=== PATIENT | female | born 1965 | race African-American/Black ===

== ENCOUNTER 2017-07-26 08:39 | Inpatient (IN) | payer OTHER ==
[2017-07-26] MEDS ORDERED: Nitroglycerin 2% Ointment 1 INCH/1 GM Packet ONE (09:05)
[2017-07-26] MEDS ORDERED: Acetaminophen 500 MG TAB ONE (09:05)
[2017-07-26] MEDS ORDERED: Acetaminophen 325 MG TAB ONE (09:15)
[2017-07-26 09:22] LABS: Hematocrit 49.6 % (36.0-47.0); Mean Platelet Volume 7.6 fL (7.4-10.4); Red Blood Cell (RBC) Count 5.65 mill/uL (4.20-5.40); White Blood Cell (WBC) Count 4.1 thou/uL (4.8-10.8)
--- NOTE | 2017-07-26 09:23 | RAD ---
CHEST ONE VIEW HISTORY: Chest pain. COMPARISON: 09/09/2014 FINDINGS: Cardiac silhouette and pulmonary vasculature are unremarkable. Mediastinum is midline. There is no confluent air space consolidation or evidence of pneumothorax. IMPRESSION: No active cardiopulmonary abnormalities are demonstrated. POS: [facility]
[2017-07-26 09:26] LABS: ALT (SGPT) 28 U/L (8-55); AST (SGOT) 26 U/L (5-34); Alkaline Phosphatase 71 U/L (40-150); Anion Gap 17 mmol/L (10-20); BUN (Urea Nitrogen) 16 mg/dL (9.8-20.1); Bilirubin, Total 0.5 mg/dL (0.2-1.2); CK (CPK) 477 U/L (29-168); Calc. Creatinine Clearance 0 mL/min (70-130); Calcium 10.1 mg/dL (7.8-10.44); Carbon Dioxide 26 mmol/L (22-29); Chloride 102 mmol/L (98-107); Estimated GFR-MDRD 73; Globulin 4.1 g/dL (2.4-3.5); Lipase 15 U/L (8-78); Protein, Total 8.7 g/dL (6.0-8.3)
[2017-07-26 09:30] LABS: Troponin I 1.185 ng/mL (< 0.028)
[2017-07-26] MEDS ORDERED: hydrALAZINE 20 MG/ML VIAL ONE (09:31)
[2017-07-26 09:40] LABS: Neutrophil 46 % (42-75)
[2017-07-26] MEDS ORDERED: Ondansetron ODT 4 MG TAB ONE (09:48)
[2017-07-26] MEDS ORDERED: Ondansetron HCl/PF 4 MG/2 ML Vial ONE (10:16)
[2017-07-26] MEDS ORDERED: Enoxaparin Sodium 80 MG/0.8 ML SYRINGE ONE (11:00)
--- NOTE | 2017-07-26 11:10 | CT ---
CT CHEST WITHOUT CONTRAST CT ABDOMEN WITHOUT CONTRAST CTA CHEST WITH CONTRAST CTA ABDOMEN WITH CONTRAST: Date: 07/26/17 HISTORY: Pain. COMPARISON: None. FINDINGS: CT examination of the chest performed prior to and after the intravenous administration of contrast. 3D rendering provided. On the precontrast imaging sequence, there is no intramural hematoma. No aneurysmal dilatation of the aorta. No aneurysm of the thoracic or abdominal aorta. The iliac contour is normal. Mild narrowing of the celiac trunk due to median arcuate ligament. The superior mesenteric artery is patent. The renal arteries are patent. No focal air space consolidation, pneumothorax, or effusion. No suspicious pulmonary nodule. No spinal fracture. Spleen, pancreas, and adrenal glands are unremarkable. Too small to characterize hypodensity present in hepatic segment 4B, although likely a cyst. No dilated loops of large or small bowel in the abdomen. No adenopathy. Small retroperitoneal and per iaortic lymph nodes. IMPRESSION: 1. No evidence of aortic dissection or aneurysm. 2. No acute process in the chest or abdomen. POS: [facility]
[2017-07-26] MEDS ORDERED: Fentanyl 100 MCG/2 ML VIAL ONE (12:44)
[2017-07-26 12:54] LABS: Critical Call Chem Troponin I RESULT DECREASING; Troponin I 0.938 ng/mL (< 0.028)
[2017-07-26] MEDS ORDERED: Ondansetron ODT 4 MG TAB PO PRN (13:15)
[2017-07-26] MEDS ORDERED: Labetalol HCl 100 MG/20 ML VIAL SLOW IVP PRN (13:15)
[2017-07-26] MEDS ORDERED: Bisacodyl 10 MG SUPP PR PRN (13:15)
[2017-07-26] MEDS ORDERED: Acetaminophen 325 MG TAB PO PRN (13:15)
[2017-07-26] MEDS ORDERED: Senokot 8.6 MG TAB PO PRN (13:15)
[2017-07-26] MEDS ORDERED: Ondansetron HCl/PF 4 MG/2 ML Vial IVP PRN (13:15)
[2017-07-26] MEDS ORDERED: cloNIDine 0.1 MG TAB PO PRN (13:15)
[2017-07-26] MEDS ORDERED: Nitroglycerin 0.4 MG TAB (25 Tab Bottle) PO PRN (13:15)
[2017-07-26] MEDS ORDERED: Nebivolol HCl 5 MG TAB PO SCH ×2 (13:30→21:00)
[2017-07-26] MEDS ORDERED: Valsartan 80 MG TAB PO SCH (13:30)
[2017-07-26 13:45] VITALS: BMI 33.2
[2017-07-26] MEDS ORDERED: Morphine 4 MG/ML VIAL SLOW IVP PRN (14:23)
[2017-07-26] MEDS ORDERED: Fentanyl 100 MCG/2 ML VIAL SLOW IVP PRN (14:25)
[2017-07-26] MEDS: Nitroglycerin 2% Ointment 1 INCH/1 GM Packet TOP SCH ×2 (14:34→14:43)
[2017-07-26] MEDS: Sodium Chloride 0.9% 1,000 ML IV SCH (14:34)
[2017-07-26] MEDS ORDERED: Clopidogrel Bisulfate 75 MG TAB PO SCH (14:45)
[2017-07-26] MEDS ORDERED: ALPRAZolam 0.25 MG TAB PO PRN (15:25)
[2017-07-26] MEDS ORDERED: Enoxaparin Sodium 40 MG/0.4 ML SYRINGE SC SCH (15:45)
[2017-07-26] MEDS ORDERED: Communication Order-Pharmacy FS SCH ×2 (15:45→16:15)
[2017-07-26] MEDS: Cyclobenzaprine 10 MG TAB PO SCH ×2 (16:11→21:20)
[2017-07-26] MEDS ORDERED: hydrALAZINE 20 MG/ML VIAL SLOW IVP PRN (16:21)
--- NOTE | 2017-07-26 16:26 | HP ---
DATE OF ADMISSION: 07/26/2017 PRIMARY CARE PHYSICIAN: Pablo Franz. PRIMARY MANAGER CRITICAL CARE UNIT: Dr. Dl Mcrae. CHIEF COMPLAINT: Chest discomfort. HISTORY OF PRESENT ILLNESS: The patient is a 52-year-old female with coronary artery disease, status post left anterior descending stent, on aspirin and Plavix, presented to the emergency room at [facility] with chest discomfort. Over the last one week, the patient has intermittent chest discomfort with some lightheadedness. Thi s morning, the patient had chest discomfort that was radiating to her back. It was more or less cons tant, substernal, dull in nature without any aggravating or relieving factor. She denies any diaphor esis, palpitations or syncope. No recent immobilization, travel, fever or chills reported. She rece ntly had injury to her back and has on and off back pain mainly in the mid upper back. In the emergency room, her initial vital signs showed temperature 98.1, respirations 18, pulse rate o f 85, blood pressure of 210/143 with O2 saturation 100% on room air. Her troponin was 1.185 with CK- MB of 15.6. CT angiogram of the chest was negative for pulmonary embolism or dissection. She receiv ed fentanyl, aspirin, 1 mg/kg Lovenox, Zofran with Tylenol in the emergency room. PAST MEDICAL HISTORY: 1. Coronary artery disease, status post left anterior descending stent. 2. Hypertension. 3. Dyslipidemia. PAST SURGICAL HISTORY: 1. Cardiac catheterization. 2. section x2. ALLERGIES: No known drug allergies. CURRENT HOME MEDICATIONS: 1. Bystolic, dose unknown. 2. Aspirin 325 mg daily. 3. Plavix 75 mg daily. 4. Lipitor 40 mg daily. 5. Please note that the patient also has nifedipine ER 60 mg b.i.d.; however, the patient has discon tinued taking this due to side effects. SOCIAL HISTORY: She currently lives at home. No smoking, alcohol or drug use. FAMILY HISTORY: Positive for premature coronary artery disease. Hypertension also runs in her famil y. REVIEW OF SYSTEMS: The following complete review of systems was negative, unless otherwise mentioned in the HPI or below: Constitutional: Weight loss or gain, ability to conduct usual activities. Skin: Rash, itching. Eyes: Double vision, pain. ENT/Mouth: Nose bleeding, neck stiffness, pain, tenderness. Cardiovascular: Palpitations, dyspnea on exertion, orthopnea. Respiratory: Shortness of breath, wheezing, cough, hemoptysis, fever or night sweats. Gastrointestinal: Poor appetite, abdominal pain, heartburn, nausea, vomiting, constipation, or diarr hea. Genitourinary: Urgency, frequency, dysuria, nocturia. Musculoskeletal: Pain, swelling. Neurologic/Psychiatric: Anxiety, depression. Allergy/Immunologic: Skin rash, bleeding tendency. PHYSICAL EXAMINATION: VITAL SIGNS: As discussed above. GENERAL: A 52-year-old female, in mild distress due to back pain. Chest discomfort has improved. T he patient declined nitropatch due to headache. HEENT: Head atraumatic, normocephalic. Sclerae are anicteric. Moist mucous membranes. No oral les ion. NECK: Supple, no JVD appreciated. No carotid bruit. LUNGS: Clear to auscultation bilaterally. HEART: S1, S2 present. Regular rate and rhythm. No murmurs, rubs or gallops appreciated. ABDOMEN: Soft, nontender, bowel sounds present. No rebound, guarding, no costovertebral angle tende rness. EXTREMITIES: No edema or calf tenderness. NEUROLOGIC: Grossly nonfocal. Moves all four extremities. Power was 5/5 in all extremities. PSYCHIATRY: Alert, awake, oriented x3. SKIN: Warm and dry. LYMPH NODES: No palpable lymph nodes in the neck. PERIPHERAL VASCULAR: Radial pulses palpable bilaterally. MUSCULOSKELETAL: No joint swelling or tenderness. LABORATORY FINDINGS: 1. CBC showed WBC 4.1 with hemoglobin 15.4, hematocrit 49.6, platelet of 226. 2. Chemistries showed sodium 141, potassium 3.6, chloride 102, bicarbonate 26, BUN 16, creatinine 0. 97, glucose 101. 3. Troponin of 1.1 with CK-MB 15.6. 4. Chest x-ray by my review was negative for infiltrate. 5. EKG by my review showed sinus rhythm with left axis deviation, left ventricular hypertrophy and n onspecific ST-T wave changes in lateral leads. 6. CT aortic dissection protocol as discussed above. IMPRESSION: 1. Non-ST elevation myocardial infarction precipitated by hypertensive crisis. 2. Hypertensive crisis. 3. Medication noncompliance. 4. Obesity with a BMI at 33.2. 5. Coronary artery disease, status post left anterior descending stent. 6. Dyslipidemia. 7. Family history of heart disease. PLAN: The patient will be monitored in the telemetry unit. She is declining nitropatch at this time . We will start her on Bystolic and valsartan based on last discharge summary. She does not want to take Procardia-XL. Cardiology will be consulted. The patient will be kept n.p.o. Resume aspirin a nd Plavix. Add Flexeril for musculoskeletal back pain. GI prophylaxis. Labetalol and clonidine p.r .n. for elevated blood pressure over 180. The patient was extensively counseled to be compliant with medications. Plan of care was discussed with the patient in detail and she stated understanding.
[2017-07-26 16:49] LABS: Troponin I 0.802 ng/mL (< 0.028)
[2017-07-26] MEDS: hydrALAZINE 20 MG/ML VIAL SLOW IVP PRN (17:39)
[2017-07-26] MEDS: Carvedilol 6.25 MG TAB PO SCH (17:40)
--- NOTE | 2017-07-26 18:46 | CON ---
DATE OF CONSULTATION: 07/26/2017 REASON FOR CONSULTATION: Recurrent chest and upper back pain, coronary artery disease. PRIMARY [employer] RULE DIE MAKER: Dr. Mcrae. HISTORY OF PRESENT ILLNESS: Ms. Casarez is a 52-year-old woman with history of coronary artery di sease. The patient is admitted to the hospital with chest and upper back pain. Ms. Casarez has been having some chest and upper back pain for the last couple of weeks, but has b een mild. She came here to the emergency room, however, with severe pain in addition to the chest an d upper back pain is also retrosternal and substernal, dull in nature. She got nitroglycerin and had improvement in discomfort. She has been admitted for further evaluation. PAST MEDICAL HISTORY: 1. Previous coronary artery disease with previous stent implantation, most recently in 2014. 2. Hypertension. 3. Hypercholesterolemia. REVIEW OF SYSTEMS: Constitutional: No significant weight gain or loss. Vision: No changes. Heari ng: No changes. Pulmonary: No cough or wheezing. Gastrointestinal: No nausea, vomiting, diarrhea . Skin: No rashes. Neurologic: No unilateral weakness or numbness. Psychiatric: No unusual depr ession or anxiety. Hematologic: No unusual bruising. Genitourinary: No burning with urination. M usculoskeletal: No unusual joint pains. MEDICATIONS: 1. Clopidogrel. 2. Aspirin. 3. Nifedipine, but she was not taking that, she may not feel well and give her chest pain. 4. Atorvastatin. ALLERGIES: None known. PHYSICAL EXAMINATION: GENERAL: This is a pleasant 52-year-old woman. She is tired, had a bad night she said.. VITAL SIGNS: Blood pressure 183/97, pulse 80 regular. LUNGS: Clear. CARDIAC: Normal S1, normal S2. ABDOMEN: Soft, nontender. EXTREMITIES: There is no clubbing, no cyanosis, no edema. Peripheral pulses are present. LABORATORY DATA: Cardiac enzymes, the troponin of 1.185 followed by 0.938. ASSESSMENT: 1. Coronary artery disease with previous stent implantation, most recently in 2014, 2.[address] aced in the distal LAD. 2. Hypertension. 3. Non-ST elevation myocardial infarction. PLAN: Proceed to cardiac catheterization tomorrow. I discussed risks of stroke, heart attack, iodin e allergy, loss of blood supply to the leg or kidney, stent thrombosis, stent restenosis. She unders tands and wishes to proceed.
[2017-07-26] MEDS ORDERED: Nitroglycerin 2% Ointment 1 INCH/1 GM Packet TOP SCH (21:00)
[2017-07-26] MEDS: Valsartan 80 MG TAB PO SCH (21:20)
[2017-07-26] MEDS: Docusate 100 MG CAP PO SCH (21:20)
[2017-07-26] MEDS: Famotidine 20 MG TAB PO SCH (21:20)
[2017-07-26] MEDS: ALPRAZolam 0.25 MG TAB PO SCH (21:20)
[2017-07-26] MEDS: Atorvastatin Calcium 40 MG TAB PO SCH (21:20)
[2017-07-27] MEDS: hydrALAZINE 20 MG/ML VIAL SLOW IVP PRN (04:49)
[2017-07-27] MEDS: Valsartan 80 MG TAB PO SCH ×2 (05:42→20:17)
[2017-07-27] MEDS: Aspirin 325 MG TAB PO SCH (05:42)
[2017-07-27] MEDS: Cyclobenzaprine 10 MG TAB PO SCH ×3 (05:42→20:16)
[2017-07-27] MEDS: Carvedilol 6.25 MG TAB PO SCH ×2 (05:42→17:21)
[2017-07-27] MEDS: Famotidine 20 MG TAB PO SCH ×2 (05:43→20:16)
[2017-07-27] MEDS: ALPRAZolam 0.25 MG TAB PO SCH ×2 (05:43→20:15)
[2017-07-27] MEDS: Clopidogrel Bisulfate 75 MG TAB PO SCH (05:43)
[2017-07-27] MEDS ORDERED: Diazepam 5 MG TAB PO SCH (06:00)
[2017-07-27 07:20] LABS: Anion Gap 14 mmol/L (10-20); BUN (Urea Nitrogen) 23 mg/dL (9.8-20.1); BUN/Creatinine Ratio 19.66; Calc. Creatinine Clearance 76 mL/min (70-130); Carbon Dioxide 24 mmol/L (22-29); Chloride 101 mmol/L (98-107); Cholesterol 224 mg/dl (< 200 Desired); Estimated GFR-MDRD 59; LDL Cholesterol, Calculated 155 mg/dL; Magnesium 2.6 mg/dL (1.6-2.6); Phosphorus 4.2 mg/dL (2.3-4.7)
[2017-07-27 07:26] LABS: #Lymphocytes 1.8 thou/uL (1.20-3.40); #Monocytes 0.7 thou/uL (0.11-0.59); #Neutrophils 3.9 thou/uL (1.40-6.50); %Basophils 0.1 % (0.0-1.0); %Eosinophils 0.3 % (0.0-10.0); %Lymphocytes 28.1 % (21.0-51.0); %Monocytes 10.1 % (0.0-10.0); Hematocrit 45.4 % (36.0-47.0); Mean Platelet Volume 8.4 fL (7.4-10.4); Neutrophil 58 % (42-75); Reactive Lymphocytes 3 % (0-10); Red Blood Cell (RBC) Count 5.02 mill/uL (4.20-5.40); White Blood Cell (WBC) Count 6.4 thou/uL (4.8-10.8)
[2017-07-27] MEDS ORDERED: Heparin 1000 UNIT/NS 500ML(OR) 1,000 ML ONE (08:18)
[2017-07-27] MEDS ORDERED: Midazolam HCl 2 mg/2 ml Vial ONE (08:48)
[2017-07-27] MEDS: Docusate 100 MG CAP PO SCH ×2 (09:00→20:15)
[2017-07-27] MEDS ORDERED: Heparin 10,000 UNITS/1 ML VIAL ONE ×2 (09:22→10:32)
[2017-07-27] MEDS ORDERED: Heparin 1000 UNIT/NS 500ML(OR) 500 ML ONE (09:38)
[2017-07-27] MEDS ORDERED: Nitroglycerin 100MG/250ML BOT 250 ML ONE (09:42)
[2017-07-27] MEDS ORDERED: Clopidogrel Bisulfate 300 MG TAB ONE (09:43)
[2017-07-27] MEDS ORDERED: Acetaminophen/Codeine 30-300mg Tablet ONE (12:35)
[2017-07-27] MEDS ORDERED: Acetaminophen/Codeine 30-300mg Tablet PO PRN ×2 (12:48)
[2017-07-27] MEDS: Sodium Chloride 0.9% 1,000 ML IV SCH (15:24)
[2017-07-27] MEDS ORDERED: Iopamidol 370 76% 50 ML VIAL FS ONE (15:45)
[2017-07-27] MEDS ORDERED: Iopamidol 370 76% 100 ML VIAL ONE (15:45)
--- NOTE | 2017-07-27 19:36 | PDOC.PN ---
- Subjective Encounter Start Date: 07/27/17 Encounter Start Time: 18:00 Patient seen and examined. No new complaints. No overnight events. s/p Cath with stent placement - Objective Resuscitation Status: Resuscitation Status FULL:Full Resuscitation MAR Reviewed: Yes Vital Signs & Weight: Vital Signs (12 hours) Temp Pulse Resp BP BP Pulse Ox 07/27/17 17:21 146/78 H 07/27/17 15:20 98.7 F 67 16 155/85 H 100 07/27/17 07:50 98.7 F 68 16 98 07/27/17 07:49 98.7 F 68 16 118/60 98 Weight Weight 187 lb 11.2 oz I&O: 07/26/17 07/27/17 07/28/17 06:59 06:59 06:59 Intake Total 1380 Output Total 450 Balance 930 Result Diagrams: 07/27/17 05:38 07/27/17 05:38 EKG Reviewed by me: Yes (Tele SR) Phys Exam - Physical Examination Constitutional: NAD Respiratory: no wheezing, no rales, no rhonchi symmetrical Cardiovascular: RRR, no significant murmur, no rub no heaves/pulsations Gastrointestinal: soft, non-tender, no distention, positive bowel sounds Musculoskeletal: no edema Neurological: non-focal, normal sensation, moves all 4 limbs Psychiatric: normal affect, A&O x 3 Dx/Plan - Plan DVT proph w/SCDs IMPRESSION: 1. Non-ST elevation myocardial infarction s/p stent placement 2. Hypertensive crisis. 3. Coronary artery disease, status post left anterior descending stent in the past 4. Obesity with a BMI at 33.2. 5. Dyslipidemia. 6. Family history of heart disease/Medication noncompliance. PLAN: * Cont ASA/Plavix * Cardio following * Await Cath report * AM labs * Cont Coreg with Valsartan Review of Systems - Review of Systems Respiratory: negative: Cough, Dry, Shortness of Breath, Hemoptysis, SOB with Excertion, Pleuritic Pain, Sputum, Wheezing Cardiovascular: negative: chest pain, palpitations, orthopnea, paroxysmal nocturnal dyspnea, edema, light headedness - Medications/Allergies Allergies/Adverse Reactions: Allergies Allergy/AdvReac Type Severity Reaction Status Date / Time No Known Allergies Allergy Verified 07/26/17 13:40 Medications: Current Medications Acetaminophen (Tylenol) 650 mg PO Q4H PRN PRN Reason: Headache/Fever or Pain Acetaminophen/Codeine Phosphate (Tylenol #3) 1 tab PO Q4H PRN PRN Reason: PAIN SCALE 1-5 Acetaminophen/Codeine Phosphate (Tylenol #3) 2 tab PO Q4H PRN PRN Reason: PAIN SCALE 6-10 Alprazolam (Xanax) 0.25 mg PO BID [facility] Last Admin: 07/27/17 05:43 Dose: 0.25 mg Aspirin (Aspirin) 325 mg PO DAILY [facility] Last Admin: 07/27/17 05:42 Dose: 325 mg Atorvastatin Calcium (Lipitor) 40 mg PO QPM [facility] Last Admin: 07/26/17 21:20 Dose: 40 mg Bisacodyl (Dulcolax) 10 mg [place] Q24H PRN PRN Reason: Constipation Carvedilol (Coreg) 12.5 mg PO BID-[facility] Last Admin: 07/27/17 17:21 Dose: 12.5 mg Clonidine (Catapres) 0.1 mg PO Q4H PRN PRN Reason: Systolic BP > 180 Clopidogrel Bisulfate (Plavix) 75 mg PO DAILY [facility] Last Admin: 07/27/17 05:43 Dose: 75 mg Cyclobenzaprine HCl (Flexeril) 10 mg PO TID [facility] Stop: 07/28/17 15:01 Last Admin: 07/27/17 15:25 Dose: 10 mg Docusate Sodium (Colace) 100 mg PO BID [facility] Last Admin: 07/27/17 09:00 Dose: Not Given Famotidine (Pepcid) 20 mg PO BID [facility] Last Admin: 07/27/17 05:43 Dose: 20 mg Fentanyl (Sublimaze) 25 mcg SLOW IVP Q3H PRN PRN Reason: Chest Pain Last Admin: 07/26/17 19:10 Dose: 25 mcg Hydralazine HCl (Apresoline) 10 mg SLOW IVP Q4H PRN PRN Reason: SBP Greater Than 180 Last Admin: 07/27/17 04:49 Dose: 10 mg Sodium Chloride (Normal Saline 0.9%) 1,000 mls @ 30 mls/hr IV .Q24H [facility] Last Admin: 07/27/17 15:24 Dose: Not Given Labetalol HCl (Normodyne) 10 mg SLOW IVP Q4H PRN PRN Reason: Systolic BP > 180 Nitroglycerin (Nitrostat) 0.4 mg PO Q5MIN PRN PRN Reason: Chest Pain Ondansetron HCl (Zofran Odt) 4 mg PO Q6H PRN PRN Reason: Nausea/Vomiting Ondansetron HCl (Zofran) 4 mg IVP Q6H PRN PRN Reason: Nausea/Vomiting Senna (Senokot) 2 tab PO HSPRN PRN PRN Reason: Constipation Valsartan (Diovan) 160 mg PO BID [facility] Last Admin: 07/27/17 05:42 Dose: 160 mg
[2017-07-27] MEDS: Atorvastatin Calcium 40 MG TAB PO SCH (20:15)
[2017-07-28 06:29] LABS: #Lymphocytes 1.5 thou/uL (1.20-3.40); #Monocytes 0.5 thou/uL (0.11-0.59); #Neutrophils 3.2 thou/uL (1.40-6.50); %Eosinophils 0.6 % (0.0-10.0); %Lymphocytes 28.4 % (21.0-51.0); %Monocytes 9.3 % (0.0-10.0); Hematocrit 43.1 % (36.0-47.0); Mean Platelet Volume 7.6 fL (7.4-10.4); Red Blood Cell (RBC) Count 4.71 mill/uL (4.20-5.40); White Blood Cell (WBC) Count 5.2 thou/uL (4.8-10.8)
[2017-07-28 06:58] LABS: Anion Gap 13 mmol/L (10-20); BUN (Urea Nitrogen) 23 mg/dL (9.8-20.1); BUN/Creatinine Ratio 19.66; Calc. Creatinine Clearance 76 mL/min (70-130); Calcium 9.4 mg/dL (7.8-10.44); Carbon Dioxide 24 mmol/L (22-29); Chloride 106 mmol/L (98-107); Estimated GFR-MDRD 59; Phosphorus 3.7 mg/dL (2.3-4.7)
[2017-07-28] MEDS: Cyclobenzaprine 10 MG TAB PO SCH ×2 (08:47→16:27)
[2017-07-28] MEDS: Carvedilol 6.25 MG TAB PO SCH ×2 (08:47→16:26)
[2017-07-28] MEDS: Clopidogrel Bisulfate 75 MG TAB PO SCH (08:48)
[2017-07-28] MEDS: Famotidine 20 MG TAB PO SCH ×2 (08:48→20:30)
[2017-07-28] MEDS: ALPRAZolam 0.25 MG TAB PO SCH ×2 (08:48→20:31)
[2017-07-28] MEDS: Aspirin 325 MG TAB PO SCH (08:48)
[2017-07-28] MEDS: Valsartan 80 MG TAB PO SCH ×2 (08:48→20:30)
[2017-07-28] MEDS: Docusate 100 MG CAP PO SCH ×2 (08:48→20:30)
[2017-07-28] MEDS: Sodium Chloride 0.9% 1,000 ML IV SCH (08:49)
[2017-07-28] MEDS ORDERED: Amlodipine 10 MG TAB PO SCH (12:30)
--- NOTE | 2017-07-28 19:19 | PDOC.PN ---
- Subjective Encounter Start Date: 07/28/17 Encounter Start Time: 15:00 Patient seen and examined. No new complaints. No overnight events - Objective Resuscitation Status: Resuscitation Status FULL:Full Resuscitation MAR Reviewed: Yes Vital Signs & Weight: Vital Signs (12 hours) Temp Pulse Resp BP BP Pulse Ox 07/28/17 16:26 122/72 07/28/17 15:35 98.6 F 75 16 122/72 98 07/28/17 12:38 68 135/81 07/28/17 11:40 98.2 F 68 16 135/81 98 07/28/17 08:47 152/92 H 07/28/17 08:00 98.6 F 75 18 152/92 H 96 Weight Weight 187 lb 11.2 oz I&O: 07/27/17 07/28/17 07/29/17 06:59 06:59 06:59 Intake Total 1860 Output Total 1300 Balance 560 Result Diagrams: 07/28/17 05:51 07/28/17 05:51 EKG Reviewed by me: Yes (Tele SR) Phys Exam - Physical Examination Constitutional: NAD Respiratory: no wheezing, no rhonchi Cardiovascular: RRR, no rub Gastrointestinal: soft, non-tender, positive bowel sounds Musculoskeletal: no edema Neurological: moves all 4 limbs Dx/Plan - Plan DVT proph w/SCDs IMPRESSION: 1. Non-ST elevation myocardial infarction s/p circumflex stent placement 2. Hypertensive crisis. BP improving 3. Coronary artery disease, status post left anterior descending stent in the past 4. Obesity with a BMI at 33.2. 5. Dyslipidemia. 6. Family history of heart disease/Medication noncompliance. PLAN: * Cardio following * Cont HTN meds including Coreg with Valsartan * Amlodipine started * Cont ASA/Plavix * DC IVF Review of Systems - Medications/Allergies Allergies/Adverse Reactions: Allergies Allergy/AdvReac Type Severity Reaction Status Date / Time No Known Allergies Allergy Verified 07/26/17 13:40 Medications: Current Medications Acetaminophen (Tylenol) 650 mg PO Q4H PRN PRN Reason: Headache/Fever or Pain Acetaminophen/Codeine Phosphate (Tylenol #3) 1 tab PO Q4H PRN PRN Reason: PAIN SCALE 1-5 Acetaminophen/Codeine Phosphate (Tylenol #3) 2 tab PO Q4H PRN PRN Reason: PAIN SCALE 6-10 Alprazolam (Xanax) 0.25 mg PO BID [facility] Last Admin: 07/28/17 08:48 Dose: 0.25 mg Amlodipine Besylate (Norvasc) 10 mg PO DAILY [facility] Aspirin (Aspirin Chewable) 81 mg PO DAILY [facility] Atorvastatin Calcium (Lipitor) 40 mg PO QPM [facility] Last Admin: 07/27/17 20:15 Dose: 40 mg Bisacodyl (Dulcolax) 10 mg [place] Q24H PRN PRN Reason: Constipation Carvedilol (Coreg) 12.5 mg PO BID-[facility] Last Admin: 07/28/17 16:26 Dose: 12.5 mg Clonidine (Catapres) 0.1 mg PO Q4H PRN PRN Reason: Systolic BP > 180 Clopidogrel Bisulfate (Plavix) 75 mg PO DAILY [facility] Last Admin: 07/28/17 08:48 Dose: 75 mg Docusate Sodium (Colace) 100 mg PO BID [facility] Last Admin: 07/28/17 08:48 Dose: 100 mg Famotidine (Pepcid) 20 mg PO BID [facility] Last Admin: 07/28/17 08:48 Dose: 20 mg Fentanyl (Sublimaze) 25 mcg SLOW IVP Q3H PRN PRN Reason: Chest Pain Last Admin: 07/26/17 19:10 Dose: 25 mcg Hydralazine HCl (Apresoline) 10 mg SLOW IVP Q4H PRN PRN Reason: SBP Greater Than 180 Last Admin: 07/27/17 04:49 Dose: 10 mg Labetalol HCl (Normodyne) 10 mg SLOW IVP Q4H PRN PRN Reason: Systolic BP > 180 Nitroglycerin (Nitrostat) 0.4 mg PO Q5MIN PRN PRN Reason: Chest Pain Ondansetron HCl (Zofran Odt) 4 mg PO Q6H PRN PRN Reason: Nausea/Vomiting Ondansetron HCl (Zofran) 4 mg IVP Q6H PRN PRN Reason: Nausea/Vomiting Senna (Senokot) 2 tab PO HSPRN PRN PRN Reason: Constipation Valsartan (Diovan) 160 mg PO BID [facility] Last Admin: 07/28/17 08:48 Dose: 160 mg
[2017-07-28] MEDS: Atorvastatin Calcium 40 MG TAB PO SCH (20:31)
[2017-07-29] MEDS ORDERED: Amlodipine 10 MG TAB PO SCH (09:00)
[2017-07-29] MEDS: Valsartan 80 MG TAB PO SCH (09:38)
[2017-07-29] MEDS: Carvedilol 6.25 MG TAB PO SCH (09:38)
[2017-07-29] MEDS: Clopidogrel Bisulfate 75 MG TAB PO SCH (09:38)
[2017-07-29] MEDS: ALPRAZolam 0.25 MG TAB PO SCH (09:39)
[2017-07-29] MEDS: Docusate 100 MG CAP PO SCH (09:39)
[2017-07-29] MEDS: Famotidine 20 MG TAB PO SCH (09:39)
[2017-07-29 13:05] VITALS: BP 142/85; TEMP 96.2
--- NOTE | 2017-07-30 08:01 | DIS ---
DATE OF ADMISSION: 07/26/2017 DATE OF DISCHARGE: 07/29/2017 DISCHARGE DISPOSITION: Home. FOLLOWUP: 1. Follow up with primary care physician, Dr. Bland in 1 week. 2. Follow up with Dr. Dl Mcrae in 3-4 weeks. 3. Outpatient cardiac rehab has been arranged. ALLERGIES: No known drug allergies. The patient was seen and examined on the day of discharge, denies any new complaints, no chest pain, shortness of breath, palpitations. Blood pressure at the time of discharge was 142/85. BRIEF HOSPITAL COURSE: The patient is a 52-year-old female with coronary artery disease, status post stent and hypertension with medication noncompliance who presented to the hospital with chest discom fort. Her blood pressure in the emergency room was 210/143. Please refer to the history and physica l dated 07/26/2017 for further details. The patient was admitted to the hospital with the diagnosis of non-ST elevation myocardial infarction precipitated by hypertensive crisis. Maximum troponin was 1.1. She underwent cardiac catheterizati on by Dr. Dl Mcrae with stent placement in the first obtuse marginal of left circumflex. She wa s monitored for 48 hours after the stent without any complications. An echocardiogram showed ejectio n fraction 55%-60% with mild concentric left ventricular hypertrophy. The patient was found to be in hypertensive urgency requiring multiple IV doses of antihypertensives. Her blood pressure medications have been optimized. Patient had discontinued taking Procardia-XL a t home, which was the reason for elevated blood pressure. Plan of care was discussed with the patien t in detail and she stated understanding. Lifestyle modification was emphasized. Total time coordinating the discharge of this patient including counseling was 33 minutes.
== END 2017-07-29 14:35 | disposition home or self-care (01) | DRG 247 ==
LOC: SCSER 08:39 → ERHOLD 09:59 → 2NO 12:56
PROVIDERS: ADMIT Internal Medicine; ATTEND Internal Medicine
PROC: 4A023N7 Measurement of Cardiac Sampling and Pressure, Left Heart, Percutaneous Approach (ICD-10-PCS; principal; 2017-07-27)
PROC: 027034Z Dilation of Coronary Artery, One Artery with Drug-eluting Intraluminal Device, Percutaneous Approach (ICD-10-PCS; 2017-07-27)
PROC: B2111ZZ Fluoroscopy of Multiple Coronary Arteries using Low Osmolar Contrast (ICD-10-PCS; 2017-07-27)
PROC: B2151ZZ Fluoroscopy of Left Heart using Low Osmolar Contrast (ICD-10-PCS; 2017-07-27)
DX: I21.4 Non-ST elevation (NSTEMI) myocardial infarction (principal); I10 Essential (primary) hypertension; I16.9 Hypertensive crisis, unspecified; I25.10 Atherosclerotic heart disease of native coronary artery without angina pectoris; Z95.5 Presence of coronary angioplasty implant and graft; Z79.01 Long term (current) use of anticoagulants; Z79.82 Long term (current) use of aspirin; E78.5 Hyperlipidemia, unspecified; Z91.14 Patient's other noncompliance with medication regimen; E66.9 Obesity, unspecified; Z68.33 Body mass index [BMI] 33.0-33.9, adult; E78.00 Pure hypercholesterolemia, unspecified
CPT/HCPCS: 36415; 71010; 71275; 80053; 80061; 80069; 82553; 83690; 83735; 84484; 85025; 85347; 92928; 93005; 93306; 93458; 96372; 96374; 96375; 99152; 99153; C1725; C1769; C1874; C1887; C9600; J0360; J1644; J1650; J2250; J2405; J3010; Q0162

== ENCOUNTER 2018-03-19 18:05 | Emergency (ER) | payer OTHER ==
[2018-03-19 18:38] LABS: #Eosinphils 0.1 thou/uL (0.0-0.7); #Lymphocytes 1.3 thou/uL (1.20-3.40); #Monocytes 0.4 thou/uL (0.11-0.59); #Neutrophils 2.3 thou/uL (1.40-6.50); %Basophils 0.8 % (0.0-1.0); %Eosinophils 2.1 % (0.0-10.0); %Lymphocytes 31.8 % (21.0-51.0); %Monocytes 10.1 % (0.0-10.0); %Neutrophils 55.2 % (42.0-75.0); Hemoglobin 13.6 g/dL (12.0-16.0); Mean Corpuscular HGB CONC 34.1 g/dL (32.0-36.0); Mean Corpuscular Volume 90.7 fL (78.0-98.0); Mean Platelet Volume 6.8 fL (7.4-10.4); Platelet Count 213 thou/uL (130-400); RBC Distribution Width 13.2 % (11.5-14.5); Red Blood Cell (RBC) Count 4.38 mill/uL (4.20-5.40); White Blood Cell (WBC) Count 4.2 thou/uL (4.8-10.8)
[2018-03-19 19:02] LABS: ALT (SGPT) 21 U/L (8-55); AST (SGOT) 17 U/L (5-34); Albumin 4.8 g/dL (3.5-5.0); Alkaline Phosphatase 63 U/L (40-150); Anion Gap 15 mmol/L (10-20); BUN (Urea Nitrogen) 13 mg/dL (9.8-20.1); Bilirubin, Total 0.5 mg/dL (0.2-1.2); Calc. Creatinine Clearance 0 mL/min (70-130); Calcium 10.1 mg/dL (7.8-10.44); Carbon Dioxide 25 mmol/L (22-29); Chloride 104 mmol/L (98-107); Estimated GFR-MDRD 51; Globulin 3.7 g/dL (2.4-3.5); Glucose 98 mg/dL (70-105); Protein, Total 8.5 g/dL (6.0-8.3); Sodium 140 mmol/L (136-145)
[2018-03-19 19:05] LABS: CKMB 3.5 ng/mL (0-6.6); Troponin I Less than 0.010 ng/mL (< 0.028)
[2018-03-19] MEDS ORDERED: Aspirin 325 MG TAB ONE (19:13)
--- NOTE | 2018-03-19 19:21 | RAD ---
PORTABLE UPRIGHT FRONTAL CHEST RADIOGRAPH: Date: 03-19-18 Comparison: 07-26-17 History: Chest pain. FINDINGS: Lungs are clear. Heart and mediastinal contours are unremarkable. No pneumothorax, pleural fluid, foc al consolidation or alveolar edema. IMPRESSION: No acute findings. POS: [facility]
[2018-03-19 20:27] LABS: Troponin I Less than 0.010 ng/mL (< 0.028)
== END 2018-03-19 20:55 ==
LOC: ERS 18:05
DX: R07.89 Other chest pain (principal); I10 Essential (primary) hypertension; I25.2 Old myocardial infarction; E78.5 Hyperlipidemia, unspecified; Z79.899 Other long term (current) drug therapy
CPT/HCPCS: 36415; 71045; 80053; 82553; 84484; 85025; 93005

== ENCOUNTER 2018-03-22 16:54 | Outpatient (CLI) | payer OTHER ==
[2018-03-22 17:15] LABS: Hemoglobin 11.9 g/dL (12.0-16.0); Mean Corpuscular HGB CONC 33.6 g/dL (32.0-36.0); Mean Corpuscular Hemoglobin 30.5 pg (27.0-31.0); Mean Corpuscular Volume 90.8 fL (78.0-98.0); Mean Platelet Volume 7.4 fL (7.4-10.4); Platelet Count 212 thou/uL (130-400); RBC Distribution Width 12.8 % (11.5-14.5); Red Blood Cell (RBC) Count 3.91 mill/uL (4.20-5.40); White Blood Cell (WBC) Count 3.1 thou/uL (4.8-10.8)
[2018-03-22 17:21] LABS: PTT 31.4 SEC (22.9-36.1); Prothrombin Time 13.4 SEC (12.0-14.7)
[2018-03-22 17:39] LABS: ALT (SGPT) 21 U/L (8-55); AST (SGOT) 15 U/L (5-34); Albumin 4.7 g/dL (3.5-5.0); Alkaline Phosphatase 54 U/L (40-150); Anion Gap 13 mmol/L (10-20); BUN (Urea Nitrogen) 21 mg/dL (9.8-20.1); Bilirubin, Total 0.6 mg/dL (0.2-1.2); Calc. Creatinine Clearance 0 mL/min (70-130); Calcium 9.9 mg/dL (7.8-10.44); Carbon Dioxide 25 mmol/L (22-29); Chloride 105 mmol/L (98-107); Estimated GFR-MDRD 51; Globulin 3.1 g/dL (2.4-3.5); Glucose 88 mg/dL (70-105); Potassium 4.7 mmol/L (3.5-5.1); Protein, Total 7.8 g/dL (6.0-8.3); Sodium 138 mmol/L (136-145)
== END 2018-03-22 16:55 | disposition home or self-care (01) ==
LOC: LABBT 16:54
PROVIDERS: ATTEND Internal Medicine Cardiovascular Disease
DX: Z01.812 Encounter for preprocedural laboratory examination (principal); I20.9 Angina pectoris, unspecified
CPT/HCPCS: 80053; 85027; 85610; 85730

== ENCOUNTER 2018-03-23 05:51 | Inpatient (IN) | payer OTHER ==
[2018-03-23] MEDS ORDERED: Diazepam 5 MG TAB ONE (06:59)
[2018-03-23 07:01] LABS: Cardiac Risk 3.3 (Less than 4.5)
[2018-03-23] MEDS ORDERED: Midazolam HCl 2 mg/2 ml Vial ONE (08:16)
[2018-03-23] MEDS ORDERED: Heparin 10,000 UNITS/1 ML VIAL ONE (08:40)
[2018-03-23] MEDS ORDERED: Fentanyl 100 MCG/2 ML VIAL ONE (08:46)
[2018-03-23] MEDS ORDERED: Clopidogrel Bisulfate 300 MG TAB ONE (09:00)
[2018-03-23] MEDS ORDERED: Ondansetron HCl/PF 4 MG/2 ML Vial ONE (10:43)
[2018-03-23] MEDS ORDERED: Atropine Sulfate 1 mg/10 ml Syringe ONE (10:53)
[2018-03-23] MEDS ORDERED: DOPamine 400 MG/D5W 250 ML 250 ML IVPB SCH (11:15)
[2018-03-23] MEDS ORDERED: Iopamidol 370 76% 50 ML VIAL FS ONE (11:27)
[2018-03-23] MEDS ORDERED: Iopamidol 370 76% 100 ML VIAL ONE (11:27)
[2018-03-23 12:08] LABS: #Lymphocytes 1.2 thou/uL (1.20-3.40); #Monocytes 0.3 thou/uL (0.11-0.59); %Basophils 0.5 % (0.0-1.0); %Lymphocytes 46.6 % (21.0-51.0); %Monocytes 10.6 % (0.0-10.0); %Neutrophils 40.4 % (42.0-75.0); Hemoglobin 10.6 g/dL (12.0-16.0); Mean Corpuscular HGB CONC 33.3 g/dL (32.0-36.0); Mean Corpuscular Hemoglobin 30.1 pg (27.0-31.0); Mean Corpuscular Volume 90.2 fL (78.0-98.0); Mean Platelet Volume 6.9 fL (7.4-10.4); Platelet Count 188 thou/uL (130-400); RBC Distribution Width 12.7 % (11.5-14.5); Red Blood Cell (RBC) Count 3.54 mill/uL (4.20-5.40); White Blood Cell (WBC) Count 2.5 thou/uL (4.8-10.8)
[2018-03-23 12:35] LABS: ALT (SGPT) 17 U/L (8-55); AST (SGOT) 12 U/L (5-34); Albumin 3.7 g/dL (3.5-5.0); Alkaline Phosphatase 42 U/L (40-150); Anion Gap 8 mmol/L (10-20); BUN (Urea Nitrogen) 18 mg/dL (9.8-20.1); Bilirubin, Total 0.5 mg/dL (0.2-1.2); Calc. Creatinine Clearance 85 mL/min (70-130); Calcium 8.6 mg/dL (7.8-10.44); Carbon Dioxide 24 mmol/L (22-29); Chloride 107 mmol/L (98-107); Estimated GFR-MDRD 64; Globulin 2.7 g/dL (2.4-3.5); Glucose 120 mg/dL (70-105); Potassium 3.8 mmol/L (3.5-5.1); Protein, Total 6.4 g/dL (6.0-8.3); Sodium 135 mmol/L (136-145)
[2018-03-23 12:37] LABS: Troponin I Less than 0.010 ng/mL (< 0.028)
--- NOTE | 2018-03-23 13:59 | CT ---
CT ABDOMEN AND PELVIS NONCONTRAST: History: Hypotension. Decreased heart rate. Recent catheterization. Evaluate for retroperitoneal dayron myriam. Comparison: 07-26-17 FINDINGS: Lung bases are clear. Contrast within the urinary collecting system is consistent with recent angiogr am procedure. Lack of current IV contrast administration limits evaluation of the soft tissues. Retroperitoneal structures are well visualized without retroperitoneal fluid collection. Urinary blad alba is decompressed by a Franco catheter. Degenerative changes lumbar spine. Right femoral vascular catheter is partially visualized. IMPRESSION: No CT evidence of retroperitoneal hematoma or other large fluid collection. POS: [facility]
[2018-03-23] MEDS ORDERED: Ondansetron HCl/PF 4 MG/2 ML Vial IVP PRN (14:42)
[2018-03-23] MEDS ORDERED: Acetaminophen 325 MG TAB PO PRN (14:42)
[2018-03-23 15:51] VITALS: BMI 31.6
[2018-03-23 15:53] LABS: Hemoglobin 11.4 g/dL (12.0-16.0)
[2018-03-23 16:25] LABS: Troponin I Less than 0.010 ng/mL (< 0.028)
--- NOTE | 2018-03-23 16:48 | RAD ---
RADIOGRAPH CHEST 1 VIEW: Supine 03/23/18 HISTORY: 53-year-old female with hypotension. FINDINGS: There is no air space density or pulmonary edema. The lateral costophrenic angles are sharp. Supine positioning makes this study insensitive for pneumothorax detection. IMPRESSION: No acute pulmonary findings. nery [] POS: [facility]
[2018-03-23] MEDS ORDERED: Fentanyl 100 MCG/2 ML VIAL SLOW IVP SCH (18:30)
[2018-03-23 18:31] LABS: Bilirubin Negative (Negative); Blood, Urine Moderate (Negative); Clarity CLEAR (Clear); Glucose, Urine (Dipstick) Negative (Negative); Leukocyte Small (Negative); Nitrite Negative (Negative); Protein, Urine (Dipstick) Negative (Neg-Trace); Specific Gravity, Urine 1.011 (1.002-1.036); Urobilinogen 0.2 mg/dL (0.2-1.0); pH, Urine 6.5 (5.0-9.0)
[2018-03-23 18:34] LABS: Bacteria/HPF None Seen HPF (None Seen); Hyaline Casts/LPF 0-3 HYALINE CAST LPF (0-3 Hyaline); Pathc Cast-AUWi Flag 0.29 (0-2.49); Squamous Epithelial 0-3 HPF (0-3)
--- NOTE | 2018-03-23 19:04 | CON ---
DATE OF CONSULTATION: 03/23/2018 CONSULTING PHYSICIAN: Dr. Mcrae. REASON FOR CONSULTATION: Hypotension. Following encompasses 70 minutes of the time. Of that time, greater than 50% was spent with the aidan ent and/or what the patient is doing in the hospital. HISTORY OF PRESENT ILLNESS: This is a 53-year-old -[place] female who underwent cardiac cath eterization earlier today. She subsequently had a LAD stent placed. Postoperatively, she became hyp otensive and bradycardic. She had to be started on dopamine. She was subsequently transferred to [facility] CCU for further care. On my arrival, the patient's arterial line was not being transduced, so we put them on a transducer a nd her blood pressure was actually much better via the femoral artery that it was on the noninvasive cuff on her arm. She was able be weaned from dopamine 15 mg down to no dopamine in a span of about 1 5 minutes. She is feeling okay right now except for some mild back pain. Of note, earlier she under went a CT of the abdomen and pelvis to rule out a retroperitoneal hemorrhage - no retroperitoneal hem orrhage was seen. PAST MEDICAL HISTORY: 1. Coronary artery disease. 2. Hypertension. 3. Hyperlipidemia. PAST SURGICAL HISTORY: 1. Multiple cardiac catheterizations and stent placements. 2. section x2. ALLERGIES: None. MEDICATIONS: Prior to admission, there is a complete medication profile and chart includes amlodipin e 5 mg daily, aspirin 81 mg daily, carvedilol 25 mg twice daily, Plavix 75 mg daily, isosorbide 30 mg ER daily, nitroglycerin sublingual as needed, Ranexa 1000 mg twice daily, Crestor 20 mg daily, and M icardis 40 mg daily. SOCIAL HISTORY: Lives at home, does not smoke, does not consume alcohol. FAMILY MEDICAL HISTORY: Remarkable for coronary artery disease and hypertension. REVIEW OF SYSTEMS: Twelve point review of systems otherwise negative. PHYSICAL EXAMINATION: VITAL SIGNS: Blood pressure currently 120/70, respiration 18, pulse in the 60s, O2 sat running betwe en 90% and 97%. HEENT: Unremarkable. NECK: Without adenopathy, JVD, or bruits. LUNGS: Clear without wheezing or rhonchi. CARDIOVASCULAR: S1, S2 regular, without murmur. ABDOMEN: Soft, nontender. EXTREMITIES: She has a left groin arterial catheter in place. LABORATORY DATA: White blood cell count 12.5, hematocrit 31.9, platelet count 188 with no left shift . Sodium 135, potassium 3.8, chloride 107, CO2 24, BUN 18, creatinine 1.1, glucose 120. CT of the a bdomen and pelvis was reviewed, showed no evidence of retroperitoneal hematoma or fluid collection. ASSESSMENT: 1. Transient hypotension post-catheterization. This is most likely secondary to sedation and analge mitch received during the catheterization. 2. Coronary artery disease. RECOMMENDATIONS: The patient is to wean off Levophed. She does not need central line. She can be w atched in the ICU until such time her sheath can be pulled. Further care per Cardiology Service.
--- NOTE | 2018-03-23 20:08 | HP ---
Time: 1 hour. The patient is an unfortunate 51-year-old woman with a long history of coronary artery disease. She has had multiple stents placed into her left anterior descending artery and left circumflex artery. The patient presented with increasing chest discomfort. She underwent a PET scan which revealed ante rior and apical ischemia. PAST MEDICAL HISTORY: Significant for: 1. Coronary artery disease. 2. Hypertension. 3. Dyslipidemia. PAST SURGICAL HISTORY: She has had a , hysterectomy. MEDICATIONS: She takes Pepcid 20 daily, Crestor 20 at bedtime, Plavix 81 daily, Coreg 25 b.i.d., Norvasc 5 daily, Ranexa 1000 b.i.d., Micardis 40 daily and Imdur 60 q.a.m. ALLERGIES: No known drug allergies. SOCIAL HISTORY: Nonsmoker. PHYSICAL EXAMINATION: GENERAL: This is an ill-appearing woman with a blood pressure of 165/101. NECK: No jugular venous distention. LUNGS: Clear to auscultation. HEART: Regular rate and rhythm, normal S1, S2. ABDOMEN: Distended. EXTREMITIES: No edema. LABORATORY RESULTS: White blood cell count was 2.5, hemoglobin 10.6, hematocrit 31.9, platelets are 288. Her sodium was 135, potassium 3.8, chloride 107, ------ 24, BUN and creatinine is 1.09. Troponin less than 0.01. EKG revealed normal sinus rhythm, normal ECG. HOSPITAL COURSE: The patient underwent PTCA and stent placement to the left anterior descending austen ry. Following the procedure, the patient became markedly hypotensive. She also had severe bradycard ia. Atropine 0.75 mg was emergently administered. The patient was started on dopamine which titrate d up to 50 mcg. Her blood pressure remains low. She underwent an emergent CT scan which ruled out a retroperitoneal hematoma. The patient was transferred to ICU. Her blood pressure finally improved and she was weaned off her medications. IMPRESSION: 1. Status post TERMINAL GAUGER and stent placement. 2. Probable vasovagal reaction. 4. Hypertension. 5. Dyslipidemia. 6. Obesity. This patient developed severe bradycardia and hypotension. This was a prolonged episode. The patien t's symptoms finally resolved. We will follow this patient with you. The patient will be continued and will be monitored in the ICU overnight.
[2018-03-23] MEDS ORDERED: Amlodipine 5 MG TAB PO SCH (21:30)
[2018-03-23] MEDS ORDERED: Nitroglycerin 0.4 MG TAB (25 Tab Bottle) SL PRN (21:33)
[2018-03-24 05:18] LABS: Hemoglobin 11.9 g/dL (12.0-16.0)
[2018-03-24 05:36] LABS: ALT (SGPT) 14 U/L (8-55); AST (SGOT) 12 U/L (5-34); Alkaline Phosphatase 47 U/L (40-150); Anion Gap 11 mmol/L (10-20); BUN (Urea Nitrogen) 12 mg/dL (9.8-20.1); Bilirubin, Total 0.5 mg/dL (0.2-1.2); Calc. Creatinine Clearance 87 mL/min (70-130); Calcium 9.2 mg/dL (7.8-10.44); Carbon Dioxide 23 mmol/L (22-29); Chloride 105 mmol/L (98-107); Estimated GFR-MDRD 70; Glucose 84 mg/dL (70-105); Sodium 135 mmol/L (136-145)
--- NOTE | 2018-03-24 06:12 | EKG ---
Test Reason : POST STENTS-LAD Blood Pressure : / mmHG Vent. Rate : 058 BPM Atrial Rate : 058 BPM P-R Int : 216 ms QRS Dur : 086 ms QT Int : 480 ms P-R-T Axes : 044 000 022 degrees QTc Int : 471 ms Sinus bradycardia with 1st degree A-V block Otherwise normal ECG When compared with ECG of 19-MAR-2018 18:15, (Unconfirmed) No significant change was found Confirmed by ZAC MURRAY ([id number]) on 03/24/2018 6:12:10 AM Referred By: SARINA Confirmed By:ZAC MURRAY
--- NOTE | 2018-03-24 06:16 | EKG ---
Test Reason : B/P DROP-BRADYCARDIA Blood Pressure : / mmHG Vent. Rate : 061 BPM Atrial Rate : 061 BPM P-R Int : 206 ms QRS Dur : 082 ms QT Int : 510 ms P-R-T Axes : 059 009 025 degrees QTc Int : 513 ms Normal sinus rhythm Prolonged QT for rate Abnormal ECG No previous ECGs available Confirmed by ZAC MURRAY ([id number]) on 03/24/2018 6:15:48 AM Referred By: WES/SARINA Confirmed By:ZAC MURRAY
--- NOTE | 2018-03-24 07:53 | PRG ---
DATE OF SERVICE: 03/24/2018 The patient is doing well. She has had no recurrent hypotension overnight. She has no complaints o f chest pain this morning. PHYSICAL EXAMINATION: VITAL SIGNS: Her temperature is 97.7, pulse 76, blood pressure 123/87, O2 sat 100%. HEENT: Unremarkable. NECK: No JVD. CHEST: Clear without wheeze or rhonchi. CARDIAC: S1 and S2 regular. ABDOMEN: Soft. EXTREMITIES: No edema. LABORATORY DATA: Hemoglobin 11.9, hematocrit 34.2. Sodium 135, potassium 4, chloride 105, CO2 23, B UN 12, creatinine 1.0, glucose 84. ASSESSMENT: Status post transient hypotension and bradycardia post-cardiac catheterization, is now r esolved. PLAN: I anticipate the patient will go home today. I have instructed the nurse to get her out of be d to see how she will do walking around the room. No further Pulmonary Critical Care recommendations . We will sign off this case.
[2018-03-24] MEDS ORDERED: Clopidogrel Bisulfate 75 MG TAB PO SCH ×2 (09:00)
[2018-03-24] MEDS ORDERED: Enoxaparin Sodium 40 MG/0.4 ML SYRINGE SC SCH (09:00)
[2018-03-24] MEDS ORDERED: Carvedilol 25 MG TAB PO SCH (09:00)
[2018-03-24] MEDS ORDERED: Ubidecarenone 50 MG CAP PO SCH (09:00)
[2018-03-24] MEDS ORDERED: Aspirin 325 mg Enteric Coated Tablet PO SCH (09:00)
[2018-03-24] MEDS ORDERED: Amlodipine 5 MG TAB PO SCH (09:00)
[2018-03-24 10:36] VITALS: BP 123/63
[2018-03-24 12:16] VITALS: TEMP 98.5
--- NOTE | 2018-03-24 13:54 | DIS ---
DATE OF ADMISSION: 03/23/2018 DATE OF DISCHARGE: 03/24/2018 DISCHARGING PHYSICIAN: Ki Cerda M.D. PRIMARY DIAGNOSIS: Hypertension after coronary artery intervention. SUMMARY: Ms. Casarez is a 53-year-old female who came to the hospital yesterday for diagnostic left heart catheterization. She was found to have a severe LAD lesion proximal to pre viously placed stents. Successfully treated with drug-eluting stent. After the procedure, she becam e bradycardic and hypotensive, thought to be from vasovagal response. Hypotension was prolonged and refractory to therapies, so we made sure that there was not any bleeding with the CT of the abdomen a nd pelvis, which was negative for bleed. We also ruled out an AL with negative troponins and unremar kable EKG. Eventually, she just resolved on her own and she has been maintaining her blood pressure normally without issues. She should be ready to go home on her outpatient medications except we will hold her ARB as well as her Imdur as her blood pressure remains a little bit borderline still. Her hemoglobin actually has gone up a little bit, so doubt that this is related to any bleeding issue. The patient is stable for discharge. We will send her home on Plavix and aspirin. See list for furt her details. She will follow up with Dr. Mcrae in 1 month.
[2018-03-24] MEDS ORDERED: Rosuvastatin 20 MG TAB PO SCH (21:00)
== END 2018-03-24 14:05 | disposition home or self-care (01) | DRG 247 ==
LOC: CCL 05:51 → CCU 15:11
PROVIDERS: ADMIT Internal Medicine Cardiovascular Disease; ATTEND Internal Medicine Cardiovascular Disease
PROC: 4A023N7 Measurement of Cardiac Sampling and Pressure, Left Heart, Percutaneous Approach (ICD-10-PCS; principal; 2018-03-23)
PROC: 027034Z Dilation of Coronary Artery, One Artery with Drug-eluting Intraluminal Device, Percutaneous Approach (ICD-10-PCS; 2018-03-23)
PROC: B2111ZZ Fluoroscopy of Multiple Coronary Arteries using Low Osmolar Contrast (ICD-10-PCS; 2018-03-23)
PROC: B2151ZZ Fluoroscopy of Left Heart using Low Osmolar Contrast (ICD-10-PCS; 2018-03-23)
DX: I25.119 Atherosclerotic heart disease of native coronary artery with unspecified angina pectoris (principal); I95.81 Postprocedural hypotension; I10 Essential (primary) hypertension; E78.5 Hyperlipidemia, unspecified; Z95.5 Presence of coronary angioplasty implant and graft; E66.9 Obesity, unspecified; Z79.82 Long term (current) use of aspirin; E78.00 Pure hypercholesterolemia, unspecified; Z68.33 Body mass index [BMI] 33.0-33.9, adult
CPT/HCPCS: 36415; 71045; 74176; 80053; 80061; 81001; 82553; 84484; 85014; 85018; 85025; 85027; 85347; 85610; 85730; 92928; 93005; 93010; 93306; 93458; 99152; C1769; C1874; C9600; J0461; J1644; J1650; J2250; J2405; J3010

== ENCOUNTER 2018-03-26 09:38 | Observation (INO) | payer OTHER ==
[2018-03-26 10:23] LABS: #Eosinphils 0.1 thou/uL (0.0-0.7); #Lymphocytes 1.1 thou/uL (1.20-3.40); #Monocytes 0.4 thou/uL (0.11-0.59); #Neutrophils 1.9 thou/uL (1.40-6.50); %Basophils 0.3 % (0.0-1.0); %Eosinophils 2.7 % (0.0-10.0); %Lymphocytes 31.1 % (21.0-51.0); %Monocytes 10.1 % (0.0-10.0); %Neutrophils 55.8 % (42.0-75.0); Hemoglobin 13.5 g/dL (12.0-16.0); Mean Corpuscular HGB CONC 34.6 g/dL (32.0-36.0); Mean Corpuscular Hemoglobin 30.7 pg (27.0-31.0); Mean Corpuscular Volume 88.7 fL (78.0-98.0); Mean Platelet Volume 6.8 fL (7.4-10.4); Platelet Count 248 thou/uL (130-400); RBC Distribution Width 12.6 % (11.5-14.5); Red Blood Cell (RBC) Count 4.39 mill/uL (4.20-5.40); White Blood Cell (WBC) Count 3.5 thou/uL (4.8-10.8)
[2018-03-26] MEDS ORDERED: Nitroglycerin 2% Ointment 1 INCH/1 GM Packet ONE (10:24)
[2018-03-26 10:43] LABS: ALT (SGPT) 17 U/L (8-55); AST (SGOT) 13 U/L (5-34); Albumin 4.5 g/dL (3.5-5.0); Alkaline Phosphatase 53 U/L (40-150); Anion Gap 13 mmol/L (10-20); BUN (Urea Nitrogen) 13 mg/dL (9.8-20.1); Bilirubin, Total 0.5 mg/dL (0.2-1.2); CK (CPK) 218 U/L (29-168); Calc. Creatinine Clearance 0 mL/min (70-130); Calcium 9.9 mg/dL (7.8-10.44); Carbon Dioxide 24 mmol/L (22-29); Chloride 103 mmol/L (98-107); Estimated GFR-MDRD 70; Globulin 3.8 g/dL (2.4-3.5); Glucose 99 mg/dL (70-105); Lipase 20 U/L (8-78); Protein, Total 8.3 g/dL (6.0-8.3); Sodium 136 mmol/L (136-145)
[2018-03-26 10:49] LABS: CKMB 3.8 ng/mL (0-6.6); Troponin I Less than 0.010 ng/mL (< 0.028)
--- NOTE | 2018-03-26 10:50 | RAD ---
SINGLE VIEW CHEST: Date: 03/26/18 COMPARISON: 03/19/18. HISTORY: Chest pain. FINDINGS: Single view of the chest shows a normal sized cardiomediastinal silhouette. There is no evidence of c onsolidation, mass, or pleural effusion. The bones are unremarkable. IMPRESSION: No evidence of acute cardiopulmonary disease. POS: [facility]
[2018-03-26] MEDS ORDERED: Acetaminophen 325 MG TAB PO PRN (11:47)
[2018-03-26] MEDS ORDERED: Nitroglycerin 0.4 MG TAB (25 Tab Bottle) SL PRN (11:47)
[2018-03-26] MEDS ORDERED: Bisacodyl 5 MG TAB PO PRN ×2 (11:47)
[2018-03-26] MEDS ORDERED: Senokot 8.6 MG TAB PO PRN ×2 (11:47)
[2018-03-26] MEDS ORDERED: Mag-Al 1200 mg/1200 mg/30 ML UDCUP PO PRN (11:47)
[2018-03-26] MEDS ORDERED: cloNIDine 0.1 MG TAB PO PRN (11:47)
[2018-03-26] MEDS ORDERED: Diabetic Tussin 200 MG/10 ML UDCUP PO PRN (11:47)
[2018-03-26] MEDS ORDERED: Loratadine 10 MG TAB PO PRN (11:47)
[2018-03-26] MEDS ORDERED: Calcium Carbonate 500 MG ChewTAB PO PRN (11:47)
[2018-03-26] MEDS ORDERED: traMADol HCl 50 MG TAB PO PRN (11:47)
[2018-03-26] MEDS ORDERED: Benzonatate 100 MG CAP PO PRN (11:47)
[2018-03-26] MEDS ORDERED: Ondansetron HCl/PF 4 MG/2 ML Vial IVP PRN (11:47)
[2018-03-26] MEDS ORDERED: hydrALAZINE 20 MG/ML VIAL SLOW IVP PRN (11:47)
[2018-03-26] MEDS ORDERED: Pantoprazole 40 MG VIAL IVP SCH ×2 (13:25→13:30)
--- NOTE | 2018-03-26 13:54 | HP ---
DATE OF ADMISSION: 03/26/2018 PRIMARY CARE PHYSICIAN: Christo Bland M.D. CHIEF COMPLAINT: Chest pain. HISTORY OF PRESENT ILLNESS: Ms. Casarez is a pleasant 53-year-old female with a past medical hist ory of coronary artery disease as well as hypertension and dyslipidemia who was recently admitted to our facility on 03/23/2018 under Cardiology services, presented to the ER with above-mentioned compla int. History is mainly obtained by the patient herself and electronic medical records have been revi ewed. The patient was admitted by Dr. Mcrae from Cardiology Services and was discharged by Dr. Cerda on ly 2 days ago. At that admission, she underwent a diagnostic left heart catheterization and was foun d to have a severe LAD lesion proximal to the previously placed stent. She underwent a successful dr ug-eluting stent for this. She did have some postprocedural complications with transient bradycardia and hypotension which resolved spontaneously and she was discharged on cardiac prudent medications. Because of the low blood pressure issues, the ARB and Imdur were held until she was seen in the outp atient setting. She actually had a CT scan of the abdomen and pelvis as well during that hospitaliza tion to rule out any internal bleeding and it was negative for the same. The patient today came back to the emergency room when she noticed that she has been having chest courtney n which she describes as a burning sensation in the center of the left chest. It is on and off. It is associated with some nausea, dizziness, and palpitations. She denies any shortness of breath. Sh e denies any vomiting. She denies any radiation of the pain. She is compliant with her medications. She has no other recent illnesses since her discharge day before yesterday. On presentation to the emergency room, she was hemodynamically stable with a blood pressure of 148/96 , pulse of 63. She underwent a 12-lead EKG, which was unremarkable. Cardiac enzymes were drawn and were within normal limit and the chest x-ray was done, which was also unremarkable. She did have chico e sinus bradycardia at 50s heart range. She was given aspirin and transdermal nitroglycerin which so mewhat relieved the pain, but the pain came back later when I was examining her. She is now being ad mitted for further evaluation to Internal Medicine Services as she is status post cardiac stenting on 03/23/2018. PAST MEDICAL HISTORY: 1. Hypertension. 2. Dyslipidemia. 3. Coronary artery disease. PAST SURGICAL HISTORY: 1. section. 2. Cardiac catheterization. PAST PSYCHIATRIC HISTORY: No anxiety, no depression. SOCIAL HISTORY: She lives with the family. She is independent with her ADLs and IADLs. No history of drug, tobacco or alcohol abuse. ALLERGIES: No known medication allergies. CURRENT MEDICATIONS: Amlodipine 5 mg daily, Plavix 75 mg daily, carvedilol 25 mg p.o. b.i.d., Ranexa 1000 mg p.o. b.i.d., Crestor one tablet daily, CoQ10 100 mg daily. REVIEW OF SYSTEMS: A 12-point review of systems is done. It is negative except for those mentioned in the history and physical. LABORATORY DATA: Her CBC shows WBCs at 3.5, otherwise unremarkable. Serum chemistries unremarkable. Creatinine kinase 218. CK-MB and troponin within normal range. Lipase is normal. BNP is normal. Chest x-ray by my review has no evidence to suggest any acute pleural effusion, infiltrate or edema. Twelve-lead EKG shows sinus bradycardia without any acute ST or T-wave changes. PHYSICAL EXAMINATION: VITAL SIGNS: Upon presentation, blood pressure 148/96, pulse of 63, respirations 17, saturating 100% on room air, temperature 97.8. GENERAL: No acute distress, awake, alert, oriented x3. She does appear somewhat uncomfortable durin g the interview when she says that the pain has returned. HEENT: Mucous membranes are slightly dry. No oropharyngeal exudate or erythema. Head is normocepha lic, atraumatic. Pupils equal, reactive to light and accommodation. Extraocular movement intact. NECK: Supple without any lymphadenopathy, JVD or bruit. CHEST: Clear to auscultation without any wheezing, rales or rhonchi. Rate and rhythm is regular wit hout any murmur, rubs or gallops. ABDOMEN: Tender to palpation in the epigastric region and obese. No rebound, guarding or rigidity. Bowel sounds are heard. EXTREMITIES: Free of any cyanosis, clubbing, or edema. NEUROLOGIC: Unremarkable. SKIN: Free of any rashes or bruises. I feel warm and dry to touch. PSYCHIATRIC: Normal affect. IMPRESSION AND PLAN: 1. Chest pain, most likely she has been having some gastroesophageal reflux given the fact that she is tender to palpation in the epigastric region. The patient is on aspirin and Plavix, though she de nies any hematochezia or melena. We will give her a trial of proton pump inhibitors and admit her un alba observation status and we will request Cardiology consultation as the patient is high risk for ca rdiac causes as well. We will restart her home medications. She is currently hemodynamically stable . We will continue to trend serial cardiac enzymes. The patient does not have any signs or symptoms to suggest a urinary tract infection. Angina can also not be ruled out, though she is only 2 days p ost-cardiac catheterization and stenting. 2. Coronary artery disease. Restart her aspirin, Plavix, beta yecenia, KATLYN inhibitor, and Ranexa as well as Crestor. 3. Hypertension, currently controlled. Restart home medications as above. 4. Dyslipidemia. Restart Crestor. 5. Obesity with BMI yet to be determined. 6. DVT and GI prophylaxis and p.r.n. medication ordered. DISPOSITION: Ms. Casarez is currently being admitted under observation status for further workup of chest pain as she is 2 days status post cardiac stent placement. Further management will depend u hermelinda her clinical course and Cardiology recommendations.
[2018-03-26 13:57] LABS: Troponin I Less than 0.010 ng/mL (< 0.028)
[2018-03-26 14:16] VITALS: BMI 34.0
[2018-03-26 16:30] LABS: Troponin I 0.011 ng/mL (< 0.028)
--- NOTE | 2018-03-26 17:52 | CON ---
DATE OF CONSULTATION: 03/27/2018 REASON FOR CONSULTATION: Chest pain. HISTORY OF PRESENT ILLNESS: Ms. Csaarez is a pleasant 53-year-old woman, who is a patient of Dr. Dl Mcrae. She underwent successful stent placement to the LAD by Dr. Ki Cerda on . She was discharged on Tuesday. She returned with chest pressure. She described as a burning type discomfort with associated nausea. It was short-lived. Her enzymes so far have been negative. PHYSICAL EXAMINATION: GENERAL: Patient is a pleasant female who is in no acute distress. The patient appears her stated a ge. VITAL SIGNS: Blood pressure 151/90, pulse , temperature 98.3. NEUROLOGIC: The patient is alert and oriented times 3 with no focal neurologic deficits. HEENT: Sclerae without icterus. Mouth has moist mucous membranes with normal pallor. NECK: No JVD. Carotid upstroke brisk. No bruits bilaterally. LUNGS: Clear to auscultation with unlabored respirations. BACK: No scoliosis or kyphosis. CARDIAC: Regular rate and rhythm with normal S1 and S2. No S3 or S4 noted. No significant rubs, mu rmurs, thrills, or gallops noted throughout the precordium. PMI is not displaced. There is no ham ternal heave. ABDOMEN: Soft, nontender, nondistended. No peritoneal signs present. No hepatosplenomegaly. No ab normal striae. EXTREMITIES: 2+ femoral and 2+ dorsalis pedis pulses. No cyanosis, clubbing, or edema. SKIN: No gross abnormalities. PERTINENT LABORATORY DATA: As above. IMPRESSION: 1. Recurrent chest pain. 2. Coronary artery disease. 3. Status post stent placement. RECOMMENDATIONS: I am relieved that Ms. Casarez's enzymes are so far negative. Her symptoms may be from a jailed diagonal branch. I did review the films. At this point, I recommend long-acting ni trates for vasodilatation. Further recommendations per Dr. Ki Cerda in a.m.
[2018-03-26] MEDS: Rosuvastatin 20 MG TAB PO SCH (20:02)
[2018-03-26] MEDS: Carvedilol 25 MG TAB PO SCH (20:03)
[2018-03-26] MEDS: Famotidine 20 MG TAB PO SCH (20:03)
[2018-03-26] MEDS ORDERED: Carvedilol 25 MG TAB PO SCH (21:00)
[2018-03-26] MEDS ORDERED: Non-Formulary Item 1 EACH (Ranolazine [Ranexa] 1,000 MG) PO SCH (21:00)
[2018-03-26] MEDS ORDERED: Rosuvastatin 20 MG TAB PO SCH (21:00)
[2018-03-27 06:11] LABS: #Basophils 0.1 thou/uL (0.0-0.2); #Eosinphils 0.1 thou/uL (0.0-0.7); #Lymphocytes 1.4 thou/uL (1.20-3.40); #Monocytes 0.4 thou/uL (0.11-0.59); #Neutrophils 1.8 thou/uL (1.40-6.50); %Basophils 1.6 % (0.0-1.0); %Eosinophils 2.5 % (0.0-10.0); %Lymphocytes 38.3 % (21.0-51.0); %Monocytes 9.9 % (0.0-10.0); %Neutrophils 47.6 % (42.0-75.0); Hemoglobin 12.6 g/dL (12.0-16.0); Mean Corpuscular HGB CONC 33.4 g/dL (32.0-36.0); Mean Corpuscular Hemoglobin 30.1 pg (27.0-31.0); Mean Corpuscular Volume 89.9 fL (78.0-98.0); Mean Platelet Volume 7.3 fL (7.4-10.4); Platelet Count 238 thou/uL (130-400); RBC Distribution Width 12.7 % (11.5-14.5); Red Blood Cell (RBC) Count 4.19 mill/uL (4.20-5.40); White Blood Cell (WBC) Count 3.7 thou/uL (4.8-10.8)
[2018-03-27 06:32] LABS: Anion Gap 12 mmol/L (10-20); BUN (Urea Nitrogen) 17 mg/dL (9.8-20.1); Calc. Creatinine Clearance 74 mL/min (70-130); Calcium 9.9 mg/dL (7.8-10.44); Carbon Dioxide 25 mmol/L (22-29); Chloride 103 mmol/L (98-107); Estimated GFR-MDRD 55; Glucose 97 mg/dL (70-105); Potassium 4.6 mmol/L (3.5-5.1); Sodium 135 mmol/L (136-145)
[2018-03-27] MEDS ORDERED: Non-Formulary Item 1 EACH (Ubidecarenone [Coq-10] 100 MG) PO SCH (09:00)
[2018-03-27] MEDS ORDERED: Amlodipine 10 MG TAB PO SCH (09:00)
[2018-03-27] MEDS: Carvedilol 25 MG TAB PO SCH ×2 (09:35→19:53)
[2018-03-27] MEDS: Amlodipine 5 MG TAB PO SCH (09:35)
[2018-03-27] MEDS: Famotidine 20 MG TAB PO SCH ×2 (09:36→19:54)
[2018-03-27] MEDS: Clopidogrel Bisulfate 75 MG TAB PO SCH (09:36)
[2018-03-27] MEDS: Enoxaparin Sodium 40 MG/0.4 ML SYRINGE SC SCH (09:36)
[2018-03-27] MEDS: Pantoprazole 40 MG VIAL IVP SCH ×2 (09:39→12:53)
[2018-03-27] MEDS: Ubidecarenone 50 MG CAP PO SCH (09:39)
--- NOTE | 2018-03-27 16:42 | PDOC.CTH ---
Cardiology Progress Note - Subjective She had an episode of chest pain earlier today while walking around with CR. - Objective Vital Signs Temp Pulse Resp BP Pulse Ox 03/27/18 15:58 98.3 F 70 18 111/64 99 03/27/18 12:00 98.4 F 69 17 105/69 94 L 03/27/18 08:03 98.4 F 68 19 03/27/18 07:58 98.4 F 68 19 138/82 97 Weight 192 lb 6 oz 03/26/18 03/27/18 03/28/18 06:59 06:59 06:59 Intake Total 760 Output Total 600 Balance 160 - Physical Examination General/Neuro: alert & oriented x3, NAD Neck: no JVD present Lungs: unlabored respirations Heart: RRR Abdomen: NT/ND Extremities: other: (no edema) - Telemetry Telemetry Rhythm: NSR - Labs Result Diagrams: 03/27/18 05:53 03/27/18 05:53 Troponin/CKMB CK-MB (CK-2) 3.8 ng/mL (0-6.6) 03/26/18 10:11 Troponin I 0.011 ng/mL (< 0.028) 03/26/18 15:59 - Assessment/Plan 1. Chest pain 2. CAD, s/p Stent to LAD, good results no ACS. 3. Post cath hypotension and bradycardia thought to be from a long Vasovagal response. PLAN: - Agree with addition of Imdur. - She is still having a little pain, we ay have to up titrate her Imdur. Will plan on sending home tomorrow if all remains stable.
--- NOTE | 2018-03-27 17:01 | PDOC.PN ---
- Subjective Encounter Start Date: 03/27/18 Encounter Start Time: 16:59 Subjective: feels better. no more CP/SOB - Objective MAR Reviewed: Yes Vital Signs & Weight: Vital Signs (12 hours) Temp Pulse Resp BP Pulse Ox 03/27/18 15:58 98.3 F 70 18 111/64 99 03/27/18 12:00 98.4 F 69 17 105/69 94 L 03/27/18 08:03 98.4 F 68 19 03/27/18 07:58 98.4 F 68 19 138/82 97 Weight Weight 192 lb 6 oz I&O: 03/26/18 03/27/18 03/28/18 06:59 06:59 06:59 Intake Total 760 Output Total 600 Balance 160 Result Diagrams: 03/27/18 05:53 03/27/18 05:53 Additional Labs: Laboratory Tests 03/26/18 03/26/18 03/26/18 10:11 13:24 15:59 Troponin I Less than 0.010 Less than 0.010 0.011 Phys Exam - Physical Examination Constitutional: NAD HEENT: PERRLA, moist MMs, sclera anicteric, oral pharynx no lesions Neck: no nodes, no JVD, supple, full ROM Respiratory: no wheezing, no rales, no rhonchi, clear to auscultation bilateral Cardiovascular: RRR, no significant murmur, no rub Gastrointestinal: soft, non-tender, no distention, positive bowel sounds Musculoskeletal: no edema, pulses present Neurological: non-focal, normal sensation, moves all 4 limbs Dx/Plan (1) CAD (coronary artery disease) Code(s): I25.10 - ATHSCL HEART DISEASE OF [place] CORONARY ARTERY W/O ANG PCTRS Status: Acute (2) ELSIE (acute kidney injury) Code(s): N17.9 - ACUTE KIDNEY FAILURE, UNSPECIFIED Status: Acute (3) Chest pain Code(s): R07.9 - CHEST PAIN, UNSPECIFIED Status: Acute (4) HLD (hyperlipidemia) Code(s): E78.5 - HYPERLIPIDEMIA, UNSPECIFIED Status: Chronic (5) S/P cardiac catheterization Status: Chronic - Plan hemodynamically stable.cont cardio-prudent meds -: imdur added yesterday.monitor overnight -: monitor renal fx * . Review of Systems - Review of Systems Constitutional: negative: fever, chills, sweats, weakness, malaise, other ENT: negative: Ear Pain, Ear Discharge, Nose Pain, Nose Discharge, Nose Congestion, Mouth Pain, Mouth Swelling, Throat Pain, Throat Swelling, Other Respiratory: negative: Cough, Dry, Shortness of Breath, Hemoptysis, SOB with Excertion, Pleuritic Pain, Sputum, Wheezing Cardiovascular: negative: chest pain, palpitations, orthopnea, paroxysmal nocturnal dyspnea, edema, light headedness, other Gastrointestinal: negative: Nausea, Vomiting, Abdominal Pain, Diarrhea, Constipation, Melena, Hematochezia, Other Genitourinary: negative: Dysuria, Frequency, Incontinence, Hematuria, Retention , Other Musculoskeletal: negative: Neck Pain, Shoulder Pain, Arm Pain, Back Pain, Hand Pain, Leg Pain, Foot Pain, Other Skin: negative: Rash, Lesions, Yoandy, Bruising, Other Neurological: negative: Weakness, Numbness, Incoordination, Change in Speech, Confusion, Seizures, Other - Medications/Allergies Allergies/Adverse Reactions: Allergies Allergy/AdvReac Type Severity Reaction Status Date / Time No Known Allergies Allergy Verified 03/22/18 17:16 Medications: Current Medications Acetaminophen (Tylenol) 650 mg PO Q4H PRN PRN Reason: Headache/Fever or Pain Last Admin: 03/27/18 01:04 Dose: 650 mg Al Hydroxide/Mg Hydroxide (Maalox) 30 ml PO Q6H PRN PRN Reason: Heartburn or Indigestion Amlodipine Besylate (Norvasc) 5 mg PO DAILY [facility] Last Admin: 03/27/18 09:35 Dose: 5 mg Aspirin (Aspirin Chewable) 81 mg PO DAILY [facility] Last Admin: 03/27/18 09:35 Dose: 81 mg Benzonatate (Tessalon) 100 mg PO Q4H PRN PRN Reason: Cough Bisacodyl (Dulcolax) 10 mg PO DAILYPRN PRN PRN Reason: Constipation Calcium Carbonate (Tums) 1,000 mg PO Q4H PRN PRN Reason: Heartburn or Indigestion Carvedilol (Coreg) 25 mg PO BID [facility] Last Admin: 03/27/18 09:35 Dose: 25 mg Clonidine (Catapres) 0.1 mg PO Q4H PRN PRN Reason: Systolic BP > 160 Clopidogrel Bisulfate (Plavix) 75 mg PO DAILY [facility] Last Admin: 03/27/18 09:36 Dose: 75 mg Coenzyme Q10 (Coenzyme Q10) 100 mg PO DAILY [facility] Last Admin: 03/27/18 09:39 Dose: 100 mg Enoxaparin Sodium (Lovenox) 40 mg SC 0900 [facility] Last Admin: 03/27/18 09:36 Dose: 40 mg Famotidine (Pepcid) 20 mg PO BID [facility] Last Admin: 03/27/18 09:36 Dose: 20 mg Guaifenesin (Robitussin Sf) 200 mg PO Q4H PRN PRN Reason: Cough Hydralazine HCl (Apresoline) 10 mg SLOW IVP Q4H PRN PRN Reason: Systolic BP > 180 Isosorbide Mononitrate (Imdur Er) 30 mg PO DAILY [facility] Last Admin: 03/27/18 09:38 Dose: 30 mg Loratadine (Claritin) 10 mg PO DAILYPRN PRN PRN Reason: Sinus Symptoms Nitroglycerin (Nitrostat) 0.4 mg SL Q5MIN PRN PRN Reason: Chest Pain Ondansetron HCl (Zofran) 4 mg IVP Q6H PRN PRN Reason: Nausea/Vomiting Pantoprazole Sodium (Protonix) 40 mg PO DAILY [facility] Ranolazine (Ranexa) 1,000 mg PO BID [facility] Last Admin: 03/27/18 09:39 Dose: 1,000 mg Rosuvastatin Calcium (Crestor) 20 mg PO HS [facility] Last Admin: 03/26/18 20:02 Dose: 20 mg Senna (Senokot) 2 tab PO HSPRN PRN PRN Reason: Constipation Tramadol HCl (Ultram) 50 mg PO Q4H PRN PRN Reason: Moderate Pain (4-6)
[2018-03-27] MEDS: Rosuvastatin 20 MG TAB PO SCH (19:54)
[2018-03-28] MEDS: Ubidecarenone 50 MG CAP PO SCH (08:36)
[2018-03-28] MEDS: Clopidogrel Bisulfate 75 MG TAB PO SCH (08:36)
[2018-03-28] MEDS: Famotidine 20 MG TAB PO SCH (08:36)
[2018-03-28] MEDS: Amlodipine 5 MG TAB PO SCH (08:36)
[2018-03-28] MEDS: Carvedilol 25 MG TAB PO SCH (08:37)
[2018-03-28] MEDS: Enoxaparin Sodium 40 MG/0.4 ML SYRINGE SC SCH (08:37)
[2018-03-28 12:03] VITALS: BP 110/73; TEMP 98.2
[2018-03-28] MEDS ORDERED: Lisinopril 2.5 MG TAB PO SCH (13:30)
--- NOTE | 2018-03-28 22:43 | DIS ---
DATE OF ADMISSION: 03/26/2018 DATE OF DISCHARGE: 03/28/2018 CONDITION AT THE TIME OF DISCHARGE: Stable and improved. DISCHARGE DISPOSITION: Home. DISCHARGE MEDICATIONS: New medications, isosorbide mononitrate 30 mg daily, lisinopril 2.5 mg daily. Resume home medications as follows, amlodipine 5 mg daily, Plavix 75 mg daily, Coreg 25 mg p.o. b.i.d ., aspirin 81 mg daily, CoQ10 daily, Crestor 20 mg daily, and Ranexa 1000 mg p.o. b.i.d. INHOUSE CONSULTATION: Cardiology, Dr. Cerda. PROCEDURES DONE IN THE HOSPITAL: Chest x-ray. HOSPITAL COURSE: Ms. Casarez is a 53-year-old female, who recently underwent a cardiac catheteriz ation 2 days prior to this admission by Dr. Cerda and came back to the emergency room with chest courtney n that felt like a burning sensation. She has undergone a successful drug-eluting stent for severe L AD lesions 2 days ago. She did have some transient episode of bradycardia and hypotension after the catheterization, which was likely secondary to vasovagal episodes. At that time, her ARB and Imdur w ere held. Upon presentation, she was hemodynamically stable with normal cardiac enzymes and normal EKG. Please see admission history and physical for further details. HOSPITAL COURSE: The patient was seen initially by Dr. Walden, who added Imdur back on. It was t hought that she might be having unstable angina. Later Dr. Cerda saw the patient and restarted on l ow dose of lisinopril. The patient's blood pressure tolerated both of these medications and this mor aby she is symptom free and is being discharged after she has been cleared by Cardiology. She was also treated with proton pump inhibitor while in the hospital as her symptoms were somewhat s uggestive of gastroesophageal reflux disease and because of the fact that the patient is on aspirin a nd Plavix and high risk of gastritis, esophagitis. She is instructed to take it for 1 month and then stopped and follow up with primary care physician. Prescription for all the new medications were pr ovided. She was seen and examined prior to discharge. PHYSICAL EXAMINATION: This morning, VITAL SIGNS: Stable blood pressure 110/73, saturating 96% on room air. CHEST: Clear to auscultation bilaterally. Rate and rhythm is regular. Discharge plan was discussed with the patient, who verbalized understanding. LABORATORY EXAMINATION: BNP 34. Serial troponin less than 0.010 x3. Creatinine kinase 218.
[2018-03-29] MEDS ORDERED: Lisinopril 2.5 MG TAB PO SCH (09:00)
== END 2018-03-28 15:40 | disposition home or self-care (01) ==
LOC: ERS 09:38 → 2SW 11:45
PROVIDERS: ADMIT Internal Medicine; ATTEND Internal Medicine
DX: R07.9 Chest pain, unspecified (principal); I25.10 Atherosclerotic heart disease of native coronary artery without angina pectoris; I10 Essential (primary) hypertension; E78.5 Hyperlipidemia, unspecified; N17.9 Acute kidney failure, unspecified; E66.9 Obesity, unspecified; Z68.35 Body mass index [BMI] 35.0-35.9, adult; Z79.02 Long term (current) use of antithrombotics/antiplatelets; Z79.899 Other long term (current) drug therapy; Z95.5 Presence of coronary angioplasty implant and graft
CPT/HCPCS: 36415; 71045; 80048; 80053; 82553; 83690; 83880; 84484; 85025; 93005; 96372; 96374; C9113; G0378; J1650

== ENCOUNTER 2018-11-08 13:39 | Outpatient (CLI) | payer OTHER ==
[2018-11-08 15:21] LABS: ALT (SGPT) 15 U/L (8-55); AST (SGOT) 14 U/L (5-34); Alkaline Phosphatase 59 U/L (40-150); Anion Gap 10 mmol/L (10-20); BUN (Urea Nitrogen) 16 mg/dL (9.8-20.1); Bilirubin, Direct 0.1 mg/dL (0.1-0.3); Bilirubin, Total 0.3 mg/dL (0.2-1.2); Calc. Creatinine Clearance 0 mL/min (70-130); Calcium 9.5 mg/dL (7.8-10.44); Carbon Dioxide 27 mmol/L (22-29); Cardiac Risk 3.5 (Less than 4.5); Chloride 109 mmol/L (98-107); Cholesterol 166 mg/dl (< 200 Desired); Estimated GFR-MDRD 68; Glucose 105 mg/dL (70-105); HDL Cholesterol 47 mg/dL (>60 Neg Risk); LDL Cholesterol, Calculated 101 mg/dL; Potassium 3.5 mmol/L (3.5-5.1); Sodium 142 mmol/L (136-145); Triglycerides 89 mg/dL (Less than 150)
--- NOTE | 2018-11-08 16:55 | EKG ---
Test Reason : Blood Pressure : / mmHG Vent. Rate : 061 BPM Atrial Rate : 061 BPM P-R Int : 212 ms QRS Dur : 086 ms QT Int : 442 ms P-R-T Axes : 059 010 -04 degrees QTc Int : 444 ms Sinus rhythm with 1st degree A-V block Otherwise normal ECG When compared with ECG of 26-MAR-2018 09:46, Nonspecific T wave abnormality, worse in Inferior leads Confirmed by NEELA RODRÍGUEZ, . SChandana ([id number]) on 11/08/2018 4:55:32 PM Referred By: RENE Confirmed By:DR. Cari KEITA MD
== END 2018-11-08 13:40 | disposition home or self-care (01) ==
LOC: LABBT 13:39
PROVIDERS: ATTEND Internal Medicine Cardiovascular Disease
DX: Z01.818 Encounter for other preprocedural examination (principal); R07.9 Chest pain, unspecified; F43.9 Reaction to severe stress, unspecified
CPT/HCPCS: 80053; 80061; 80076; 93005; 93010

== ENCOUNTER 2018-11-14 06:01 | Day surgery (SDC) | payer OTHER ==
[2018-11-08 14:12] VITALS: BMI 34.3
[2018-11-14] MEDS ORDERED: Diazepam 5 MG TAB ONE (06:11)
[2018-11-14] MEDS ORDERED: Fentanyl 100 MCG/2 ML VIAL ONE (07:43)
[2018-11-14] MEDS ORDERED: Midazolam HCl 2 mg/2 ml Vial ONE (07:43)
[2018-11-14] MEDS ORDERED: Iopamidol 370 76% 100 ML VIAL ONE (11:58)
--- NOTE | 2018-11-14 12:53 | DIS ---
DATE OF ADMISSION: 11/14/2018 DATE OF DISCHARGE: 11/14/2018 DISCHARGE DIAGNOSES: 1. Coronary artery disease. 2. History of percutaneous transluminal coronary angioplasty and stent placement. 3. History of myocardial infarction. 4. Hypertension. 5. Dyslipidemia. HISTORY: This patient is a pleasant 53-year-old woman with a long history of coronary artery disease. She has undergone multiple stents placement. Most recently, she had reocclusion of an LAD stent approximately a year ago. She underwent repeat PTCA and stent placed. The patient has had severe refractory angina. She has been on multiple medications and continues to have to use multiple nitroglycerin tablets. HOSPITAL COURSE: On 11/14/2018, the patient underwent a left heart catheterization and she was found to have normal left ventricular ejection fraction of 50% to 55%. The LAD had multiple stents that showed no significant stenosis. The first diagonal branch had a 50% stenosis. The circumflex artery had a 30% ostial stenosis and 50% proximal stenosis, 100% occlusion of a stent in a superior obtuse marginal branch and a 70% lesion in the inferior branch. The right coronary had a 20% ostial stenosis, proximal stenosis, and 90% lesion in the right ventricular branch and diffuse distal disease. The patient was felt to have significant coronary arteries, but no lesions felt to be appropriate for coronary intervention. The patient will continue on medical therapy. DISCHARGE MEDICATIONS: Include; 1. Norvasc 10 daily. 2. Aspirin 81 daily. 3. Coreg 25 daily. 4. Plavix 75 daily. 5. Vascepa 2 tablets twice a day. 6. Imdur 120 q.a.m. 7. Ranexa 1000 b.i.d. 8. Coreg 20 at bedtime. 9. Micardis 40 daily. 10. CoQ10 of 200 mg daily. Job ID: [id number]
== END 2018-11-14 14:20 | disposition home or self-care (01) ==
LOC: CCL 06:01
PROVIDERS: ATTEND Internal Medicine Cardiovascular Disease
PROC: B2111ZZ Fluoroscopy of Multiple Coronary Arteries using Low Osmolar Contrast (ICD-10-PCS; principal; 2018-11-14)
PROC: 4A023N7 Measurement of Cardiac Sampling and Pressure, Left Heart, Percutaneous Approach (ICD-10-PCS; principal; 2018-11-14)
DX: I25.119 Atherosclerotic heart disease of native coronary artery with unspecified angina pectoris (principal); I25.82 Chronic total occlusion of coronary artery; I25.2 Old myocardial infarction; I10 Essential (primary) hypertension; E78.2 Mixed hyperlipidemia; E66.9 Obesity, unspecified; Z68.34 Body mass index [BMI] 34.0-34.9, adult; Z79.02 Long term (current) use of antithrombotics/antiplatelets; Z79.82 Long term (current) use of aspirin; Z79.899 Other long term (current) drug therapy; Z95.5 Presence of coronary angioplasty implant and graft
CPT/HCPCS: 76942; 93458; 99152; C1769; J1644; J2250; J3010; Q9967

== ENCOUNTER 2018-12-14 18:06 | Emergency (ER) | payer OTHER ==
--- NOTE | 2018-12-14 18:50 | RAD ---
XR Chest Pa Lat STANDARD History: [Chest pain] Comparison: Chest radiograph March 26, 2018 Findings: Lungs are clear. No pneumothorax or effusion. Cardiac silhouette and mediastinal contours a re within normal limits. Impression: No acute intrathoracic abnormality.
[2018-12-14 18:51] LABS: #Basophils 0.1 thou/uL (0.0-0.2); #Eosinphils 0.1 thou/uL (0.0-0.7); #Lymphocytes 1.5 thou/uL (1.20-3.40); #Monocytes 0.3 thou/uL (0.11-0.59); #Neutrophils 1.2 thou/uL (1.40-6.50); %Basophils 2.3 % (0.0-1.0); %Eosinophils 2.5 % (0.0-10.0); %Lymphocytes 46.8 % (21.0-51.0); %Monocytes 10.8 % (0.0-10.0); %Neutrophils 37.7 % (42.0-75.0); Hemoglobin 12.6 g/dL (12.0-16.0); Mean Corpuscular HGB CONC 34.4 g/dL (32.0-36.0); Mean Corpuscular Hemoglobin 30.3 pg (27.0-31.0); Mean Corpuscular Volume 88.3 fL (78.0-98.0); Mean Platelet Volume 7.1 fL (7.4-10.4); Platelet Count 203 thou/uL (130-400); RBC Distribution Width 12.9 % (11.5-14.5); Red Blood Cell (RBC) Count 4.14 mill/uL (4.20-5.40); White Blood Cell (WBC) Count 3.1 thou/uL (4.8-10.8)
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
[2018-12-14 19:07] LABS: ALT (SGPT) 22 U/L (8-55); AST (SGOT) 15 U/L (5-34); Albumin 4.3 g/dL (3.5-5.0); Alkaline Phosphatase 62 U/L (40-150); Anion Gap 12 mmol/L (10-20); BUN (Urea Nitrogen) 19 mg/dL (9.8-20.1); Bilirubin, Total 0.3 mg/dL (0.2-1.2); Calc. Creatinine Clearance 0 mL/min (70-130); Calcium 9.6 mg/dL (7.8-10.44); Carbon Dioxide 24 mmol/L (22-29); Chloride 108 mmol/L (98-107); Estimated GFR-MDRD 50; Globulin 3.2 g/dL (2.4-3.5); Glucose 101 mg/dL (70-105); Lipase 19 U/L (8-78); Potassium 3.4 mmol/L (3.5-5.1); Protein, Total 7.5 g/dL (6.0-8.3); Sodium 141 mmol/L (136-145)
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
[2018-12-14 22:12] LABS: Troponin I Less than 0.010 ng/mL (< 0.028)
== END 2018-12-14 22:40 | disposition home or self-care (01) ==
LOC: SCSER 18:06
DX: R07.9 Chest pain, unspecified (principal); R51 Headache; R42 Dizziness and giddiness; I25.2 Old myocardial infarction; E78.5 Hyperlipidemia, unspecified; I10 Essential (primary) hypertension; Z79.899 Other long term (current) drug therapy; Z79.82 Long term (current) use of aspirin; V43.52XA Car driver injured in collision with other type car in traffic accident, initial encounter
CPT/HCPCS: 36415; 70450; 71046; 72125; 80053; 83690; 84484; 85025; 93005

== ENCOUNTER 2019-01-07 15:35 | Observation (INO) | payer OTHER ==
[2019-01-07] MEDS ORDERED: Nitroglycerin 0.4 MG TAB (25 Tab Bottle) ONE (16:05)
--- NOTE | 2019-01-07 16:24 | RAD ---
EXAM: Single view of the chest HISTORY: Chest pain; intermittent headache and nausea COMPARISON: 03/26/2018 FINDINGS: Single view of the chest shows a normal sized cardiomediastinal silhouette. There is no dwayne dence of consolidation, mass, or pleural effusion. The bones are unremarkable. IMPRESSION: No evidence of acute cardiopulmonary disease
[2019-01-07 16:31] LABS: ALT (SGPT) 23 U/L (8-55); AST (SGOT) 18 U/L (5-34); Albumin 4.2 g/dL (3.5-5.0); Alkaline Phosphatase 56 U/L (40-150); Anion Gap 14 mmol/L (10-20); BUN (Urea Nitrogen) 18 mg/dL (9.8-20.1); Bilirubin, Total 0.3 mg/dL (0.2-1.2); Calc. Creatinine Clearance 0 mL/min (70-130); Calcium 9.4 mg/dL (7.8-10.44); Carbon Dioxide 23 mmol/L (22-29); Chloride 106 mmol/L (98-107); Estimated GFR-MDRD 52; Globulin 3.5 g/dL (2.4-3.5); Glucose 108 mg/dL (70-105); Potassium 3.9 mmol/L (3.5-5.1); Protein, Total 7.7 g/dL (6.0-8.3); Sodium 139 mmol/L (136-145)
[2019-01-07 16:34] LABS: Band 4 % (5-11); Eosinophils 2 % (0-10); Hemoglobin 12.4 g/dL (12.0-16.0); Lymphocytes 33 % (21-51); MDiff Complete? YES; Mean Corpuscular HGB CONC 34.4 g/dL (32.0-36.0); Mean Corpuscular Hemoglobin 30.7 pg (27.0-31.0); Mean Corpuscular Volume 89.3 fL (78.0-98.0); Mean Platelet Volume 7.6 fL (7.4-10.4); Monocytes 10 % (0-10); Neutrophil 50 % (42-75); Platelet Count 216 thou/uL (130-400); Platelet Morphology Comment Appears Adequate; RBC Distribution Width 13.2 % (11.5-14.5); RBC Morphology Normal; Red Blood Cell (RBC) Count 4.04 mill/uL (4.20-5.40); White Blood Cell (WBC) Count 3.5 thou/uL (4.8-10.8)
[2019-01-07] MEDS ORDERED: Metoclopramide HCl 10 MG/2 ML VIAL ONE (16:54)
[2019-01-07] MEDS ORDERED: diphenhydrAMINE 50 MG/ML VIAL ONE (16:54)
[2019-01-07 19:15] VITALS: BMI 36.6
[2019-01-07] MEDS ORDERED: Ondansetron ODT 4 MG TAB SL PRN (19:27)
[2019-01-07] MEDS ORDERED: Ondansetron PF 4 MG/2 ML Vial IVP PRN (19:27)
[2019-01-07 20:10] LABS: Troponin I Less than 0.010 ng/mL (< 0.028)
[2019-01-07] MEDS ORDERED: Carvedilol 25 MG TAB PO SCH (22:45)
[2019-01-07] MEDS ORDERED: Rosuvastatin 20 MG TAB PO SCH (22:45)
[2019-01-07] MEDS ORDERED: Sodium Chloride 0.9% 1,000 ML IV SCH (22:45)
[2019-01-07 23:23] LABS: Troponin I Less than 0.010 ng/mL (< 0.028)
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
[2019-01-08 05:41] LABS: Bilirubin Negative (Negative); Blood, Urine Negative (Negative); Clarity CLEAR (Clear); Glucose, Urine (Dipstick) Negative (Negative); Leukocyte Negative (Negative); Nitrite Negative (Negative); Protein, Urine (Dipstick) Negative (Neg-Trace); Specific Gravity, Urine 1.018 (1.002-1.036); Urobilinogen 0.2 mg/dL (0.2-1.0)
[2019-01-08 05:53] LABS: Urine Culture Reflex No No
[2019-01-08 06:11] LABS: Anion Gap 10 mmol/L (10-20); BUN (Urea Nitrogen) 14 mg/dL (9.8-20.1); Calc. Creatinine Clearance 90 mL/min (70-130); Calcium 9.1 mg/dL (7.8-10.44); Carbon Dioxide 27 mmol/L (22-29); Cardiac Risk 3.8 (Less than 4.5); Chloride 106 mmol/L (98-107); Cholesterol 157 mg/dl (< 200 Desired); Estimated GFR-MDRD 64; Glucose 102 mg/dL (70-105); HDL Cholesterol 41 mg/dL (>60 Neg Risk); LDL Cholesterol, Calculated 104 mg/dL; Potassium 3.6 mmol/L (3.5-5.1); Sodium 139 mmol/L (136-145); Triglycerides 58 mg/dL (Less than 150)
[2019-01-08 07:23] LABS: Eosinophils 5 % (0-10); Hemoglobin 11.8 g/dL (12.0-16.0); Lymphocytes 48 % (21-51); MDiff Complete? YES; Mean Corpuscular HGB CONC 32.8 g/dL (32.0-36.0); Mean Corpuscular Hemoglobin 30.8 pg (27.0-31.0); Mean Corpuscular Volume 93.9 fL (78.0-98.0); Mean Platelet Volume 7.4 fL (7.4-10.4); Monocytes 8 % (0-10); Neutrophil 39 % (42-75); Platelet Count 211 thou/uL (130-400); RBC Distribution Width 12.5 % (11.5-14.5); Red Blood Cell (RBC) Count 3.85 mill/uL (4.20-5.40); White Blood Cell (WBC) Count 3.4 thou/uL (4.8-10.8)
[2019-01-08] MEDS ORDERED: Icosapent Ethyl [Vascepa] 2 GM PO SCH (08:00)
--- NOTE | 2019-01-08 08:35 | CT ---
CT Brain WO Con: 01/08/2019 8:00 AM CLINICAL HISTORY: History of TIA and disorientation. IMAGING TECHNIQUE: Multiple CT images were obtained of the brain without IV contrast. COMPARISON: December 14, 2018 FINDINGS: Infarct: No acute infarct evident. Hemorrhage: None.. Hydrocephalus: None.. Basal cisterns: Normal.. Cerebral parenchyma: There is stable mild chronic small vessel white matter ischemic change. Midline shift: None.. Cerebellum: Normal. Brainstem: Normal. OTHER: Calvarium: Intact.. Visualized Paranasal sinuses: Clear.. Extracranial soft tissues:Normal. IMPRESSION: No acute intracranial abnormality.
[2019-01-08] MEDS ORDERED: Aspirin Chewable 81 MG TAB PO SCH (09:00)
[2019-01-08] MEDS ORDERED: Carvedilol 25 MG TAB PO SCH ×2 (09:00)
[2019-01-08] MEDS ORDERED: Amlodipine 10 MG TAB PO SCH (09:00)
[2019-01-08] MEDS ORDERED: Ubidecarenone 50 MG CAP PO SCH (09:00)
[2019-01-08] MEDS ORDERED: Clopidogrel Bisulfate 75 MG TAB PO SCH (09:00)
[2019-01-08] MEDS ORDERED: Famotidine 20 MG TAB PO SCH (09:00)
--- NOTE | 2019-01-08 09:07 | ULT ---
EXAM: Carotid ultrasound HISTORY: Stroke/TIA COMPARISON: None TECHNIQUE: Multiplanar grayscale and color Doppler images were obtained in a carotid ultrasound. Spec tral analysis of the Doppler waveforms were performed. FINDINGS: No significant plaque is visualized in either internal carotid artery. No significant plaque is seen in either common carotid artery. The Doppler waveforms are normal in the visualized vessels. Peak systolic velocity in the right internal carotid artery 50 cm/s. Peak systolic velocity in the right common carotid artery 63 cm/s. The right ICA/CCA ratio is 0.8. Peak systolic velocity in the left internal carotid artery 57 cm/s. Peak systolic velocity in the left common carotid artery 88 cm/s. The left ICA/CCA ratio is 0.7. Both vertebral arteries demonstrate antegrade flow without focal stenosis IMPRESSION: No evidence of hemodynamically significant stenosis.
[2019-01-08 10:25] LABS: Bacteria/HPF None Seen HPF (None Seen); Hyaline Casts/LPF 0-3 HYALINE CAST LPF (0-3 Hyaline); Pathc Cast-AUWi Flag 0.95 (0-2.49); RBC/HPF 0-3 HPF (0-3)
--- NOTE | 2019-01-08 12:02 | MRI ---
MRI BRAIN NONCONTRAST: INDICATION: Headache with vision changes. FINDINGS: There is persistent motion throughout the exam which degrades image quality and does limit the evalua tion. No ventriculomegaly, mass effect, midline shift, or acute territorial infarction. No hemorrha gic susceptibility. Mild bilateral fluid signal is seen. Evaluation is otherwise limited. IMPRESSION: No acute territorial infarction or mass effect. Should neurologic deficits persist, followup imaging may be obtained when the patient is better able to tolerate the exam. POS: C
[2019-01-08 12:34] VITALS: BP 128/73; TEMP 98.3
[2019-01-08] MEDS ORDERED: Rosuvastatin 20 MG TAB PO SCH ×2 (21:00)
--- NOTE | 2019-01-09 04:06 | DIS ---
DATE OF ADMISSION: 01/07/2019 DATE OF DISCHARGE: 01/08/2019 CHIEF COMPLAINT ON ADMISSION: chest pain. DISCHARGE DIAGNOSES: 1. Chest pain, questionable episode of angina, resolved, acute coronary syndrome ruled out. 2. Triple-vessel coronary artery disease, followed by Dr. Mcrae, left heart catheterization in 11/2018 revealed several lesions not amenable to bypass or stenting, medical therapy maximized at this time; the patient currently receiving EECP therapy for refractory angina. 3. Headache with associated vision changes-MRI negative for acute abnormality, Imdur may be contributing to headache. 4. Acute on chronic renal insufficiency, resolved. BRIEF HOSPITAL COURSE: Ms. Casarez is a 53-year-old female with past medical history significant for known coronary artery disease, hypertension , who presented to the hospital with complaints of chest pain that she said was similar to her previous episode of CA. She had no acute ST or T-wave changes on EKG and serial troponin was negative x3. The chest pain did resolve on its own. The patient also had complained of an episode of headache with some associated lightheadedness and dizziness. She states that occasionally with her headache, her vision would get blurry. MRI was performed, which ruled out any vertebrobasilar stroke or acute intracranial abnormality. The patient has no complaints at this time, and her presenting symptoms have resolved. She has no complaints at this time and workup has been negative. CONDITION AT DISCHARGE: Stable. DISCHARGE DISPOSITION: Home. DISCHARGE INSTRUCTIONS: The patient will continue her home medication regimen which includes aspirin, statin, Plavix, along with Ranexa and Imdur. She has a followup scheduled with Dr. Mcrae, her primary vascular sonographer in the next 2 days. She will continue to undergo EECP therapy in [place] to improve her anginal symptoms, as she is currently maximized on medical therapy and is not a candidate for any further vascular intervention be it percutaneous or bypass. She will also follow up with her primary care physician. The care of this patient has been discussed with Dr. Concepcion who agrees with discharge as outlined above. Job ID: [id number] [facility]
== END 2019-01-08 15:30 | disposition home or self-care (01) ==
LOC: SCSER 15:35 → 2SW 18:51
PROVIDERS: ADMIT Internal Medicine; ATTEND Internal Medicine
DX: R07.9 Chest pain, unspecified (principal); I25.10 Atherosclerotic heart disease of native coronary artery without angina pectoris; I12.9 Hypertensive chronic kidney disease with stage 1 through stage 4 chronic kidney disease, or unspecified chronic kidney disease; N18.9 Chronic kidney disease, unspecified; N17.9 Acute kidney failure, unspecified; I45.81 Long QT syndrome; I25.2 Old myocardial infarction; E78.5 Hyperlipidemia, unspecified; G89.29 Other chronic pain; M54.2 Cervicalgia; R51 Headache; Z79.82 Long term (current) use of aspirin; Z79.899 Other long term (current) drug therapy; Z95.5 Presence of coronary angioplasty implant and graft
CPT/HCPCS: 36415; 70450; 70551; 71045; 80048; 80053; 80061; 81001; 83735; 83880; 84484; 85025; 93005; 93880; 96374; 96375; G0378; J1200; J2765

== ENCOUNTER 2019-03-22 11:36 | Day surgery (SDC) | payer OTHER ==
[2019-03-21 16:53] VITALS: BMI 37.0
[2019-03-22] MEDS ORDERED: Lidocaine Viscous Sol 2% 15 ml UD Cup ONE (11:58)
--- NOTE | 2019-03-22 12:50 | ULT ---
ULTRASOUND ABDOMEN LIMITED: (RIGHT UPPER QUADRANT) DATE: 03/22/2019 HISTORY: 54-year-old female with epigastric abdominal pain. FINDINGS: Gallbladder: Normal wall thickness. No gallstones or sludge identified. No pericholecystic fluid. Liver: Normal parenchymal echogenicity. Right kidney: No hydronephrosis. Pancreas: Visualized, with no gross sonographic abnormality identified (although ultrasound is relati vely insensitive for the detection of pancreatic pathology compared to CT and MRI.). Common duct caliber: 4 mm. IMPRESSION: Normal.
--- NOTE | 2019-03-22 13:40 | OP ---
DATE OF PROCEDURE: 03/22/2019 PROCEDURE PERFORMED: Esophagogastroduodenoscopy with biopsy. PREOPERATIVE DIAGNOSIS: Epigastric pain and substernal pain that radiates around to her back. DESCRIPTION OF PROCEDURE: Informed consent was obtained from the patient. She was sedated with total intravenous anesthesia. The bite block was placed and the endoscope was advanced easily to the second portion of the duodenum and retroflexion was performed in the stomach. The esophagus had very mild grade A erosive esophagitis. The esophagus was otherwise normal. The stomach had 3 small erosions in the antrum. Biopsies were obtained to rule out Helicobacter pylori. The remainder of the gastric mucosa including retroflex views was normal. The pylorus and first and second portions of the duodenum were normal. The air was suctioned from the stomach. The procedure was completed. The patient did well without immediate complications. IMPRESSION: 1. Very mild grade A erosive esophagitis. 2. Mild erosive gastritis in the antrum. Biopsies taken to rule out Helicobacter pylori. 3. Otherwise normal esophagogastroduodenoscopy. I would not expect the above findings to be a significant source for her substernal pain. A trial of acid suppression though will help determine if reflux is contributing to her symptoms. 4. She had ultrasound of the gallbladder today, which was normal. RECOMMENDATIONS: 1. Pantoprazole 40 mg daily for the next 4 to 8 weeks. 2. Follow up in GI clinic in [address] Kenyon. Job ID: [id number]
== END 2019-03-22 14:38 | disposition home or self-care (01) ==
LOC: SDC 11:36
PROVIDERS: ATTEND Internal Medicine Gastroenterology
PROC: 0DB78ZX Excision of Stomach, Pylorus, Via Natural or Artificial Opening Endoscopic, Diagnostic (ICD-10-PCS; principal; 2019-03-22)
DX: K31.89 Other diseases of stomach and duodenum (principal); K20.8 Other esophagitis; I25.10 Atherosclerotic heart disease of native coronary artery without angina pectoris; E78.00 Pure hypercholesterolemia, unspecified; E78.5 Hyperlipidemia, unspecified; Z79.82 Long term (current) use of aspirin; Z79.899 Other long term (current) drug therapy; Z95.5 Presence of coronary angioplasty implant and graft
CPT/HCPCS: 76705; 88305; 88312

== ENCOUNTER 2019-04-24 09:55 | Emergency (ER) | payer OTHER | END 2019-04-24 10:28 | disposition home or self-care (01) | LOC: SCSER 09:55 | DX: J06.9 Acute upper respiratory infection, unspecified (principal); E78.5 Hyperlipidemia, unspecified; I25.2 Old myocardial infarction; I20.9 Angina pectoris, unspecified; I10 Essential (primary) hypertension; Z79.891 Long term (current) use of opiate analgesic; Z79.899 Other long term (current) drug therapy; Z79.82 Long term (current) use of aspirin | CPT/HCPCS: 99283 ==